=== PATIENT | male | born 1945 | race Caucasian/White ===

== ENCOUNTER → 2019-11-07 11:47 | Outpatient (CLI) | payer MEDICARE, SELFPAY ==
--- NOTE | 2019-11-07 11:56 | XR_ITS ---
PROCEDURE: XR CHEST 2V CLINICAL HISTORY: chest pain Cardiac stent was placed 2 months ago. COMPARISON: No exams were available for comparison FINDINGS: No acute bony abnormalities. There is bony demineralization. Increased thoracic kyphosis. There is a borderline cardiomegaly. Atherosclerotic calcification of the aortic arch. Very mildly prominent peripheral pulmonary vascular markings. There is no demonstrated consolidation, pleural effusion or pneumothorax. IMPRESSION: 1. No acute findings. Dictated by: Dre Phelan 11/07/2019 17:51 Electronically signed by Dre Phelan in [place] 11/07/2019 17:51
== END ==
PROVIDERS: PCP Family Medicine; Visit Provider Family Medicine
DX: R07.9 Chest pain, unspecified (principal)
CPT/HCPCS: 71046

== ENCOUNTER 2019-11-08 12:00 | Day surgery (SDC) | payer MEDICARE, SELFPAY ==
[2019-11-08] VITALS (11 sets, daily range): BP systolic 125–185; BP diastolic 57–73; PULSE 54–61; RESP 16–20; TEMP 36.6; O2SAT 93–98; BMI 29.1
--- NOTE | 2019-11-08 | IR_ITS ---
APPROVED REPORT Patient Location: Outpatient PROCEDURES Left heart catheterization Left ventriculogram Selective coronary angiogram Drug-eluting stent deployment to the ostial dominant right coronary artery INDICATION Coronary artery disease, Class IV angina pectoris, In-stent restenosis involving the ostial dominant right coronary artery Informed consent was obtained prior to the procedure. COMPLICATIONS none Estimated Blood Loss: less than 10 mls TECHNIQUE One percent lidocaine used to anesthetize the right anterior aspect of the wrist. The right radial artery was accessed via the Seldinger technique. A 6 Maori sheath was placed in the right radial artery. 2.5 mg of verapamil, 800 mcg of nitroglycerin, 1mg Lidocaine and 5000 U Heparin were given through the arterial sheath. The trap catheter was also used to perform left heart catheterization, left ventriculogram and selective coronary angiogram. At the end of the diagnostic angiogram therapeutic heparin was administered giving a therapeutic ACT. A 3 DRC guide catheter was placed in the right coronary cusp and a Choice PT extra-support wire was used to traverse the stenosis in the right coronary artery. A 3.5 x 12 mm resolute priya stent was deployed at 24 areli reducing the stenosis. This was postdilated with a 4 mm x 8 mm noncompliant balloon followed by a 4.5 x 8 mm noncompliant balloon both balloons taken to 24 areli to post dilate. BRIAN-3 flow was present before and after the procedure. At the end of the procedure the apparatus was removed the sheath was removed good hemostasis was achieved using TR banding patient was transferred to the postop holding area stable condition ANGIOGRAPHIC RESULTS The left main artery Has a distal 30% stenosis The left anterior descending artery Has a stent in the proximal through mid segment which is widely patent free of in-stent restenosis with excellent proximal distal transitioning. The circumflex artery Is nondominant and has a stent in the proximal segment which is widely patent with mild in-stent restenosis. Distal to the stent there is a 40% transitioning into the solitary moderate-sized obtuse marginal artery The right coronary artery Is a large dominant vessel and has an ostial greater than 90% concentric in-stent restenotic lesion followed by a proximal 30% in-stent restenosis lesion with widely patent stents throughout the mid segment. Distally the vessel has mild atheromatous plaque less than 20% The MELTON ventriculogram reveals Normal 65% The left ventricular end-diastolic pressure 10 mmHg IMPRESSION Mild to moderate distal left main disease as described above Widely patent stents in the proximal and mid LAD Widely patent stents in the proximal circumflex artery with moderate stenosis into a moderate-sized first obtuse marginal artery Severe to critical in-stent restenosis of the ostial dominant right coronary artery Successful stenting of a critically diseased ostial dominant right coronary artery critical disease reduced to less than 10% with one drug-eluting stent Normal ejection fraction Normal left ventricular end-diastolic pressure PLAN 1. Dual antiplatelet therapy 2. LDL less than 55 3. Cardiac rehabilitation 4. Avoidance of tobacco products 5. Risk factor modification Electronically signed by : Cornelio Gardner, 11/08/2019 13:12:42
[2019-11-08 12:19] LABS: Basophils # 0.1 K/mm3 (0-0.2); Eosinophils # 0.3 K/mm3 (0.0-0.4); Eosinophils % 4.1 % (0.1-12.0); Hematocrit 33.7 % (42.0-52.0); Hemoglobin 11.7 g/dL (14.1-18.0); Lymphocytes # 1.3 K/mm3 (0.7-4.5); Mean Corpuscular HGB Conc 34.8 g/dL (31.8-35.4); Mean Corpuscular Hemoglobin 30.2 pg (27.0-31.2); Mean Corpuscular Volume 86.8 fl (80-94); Mean Platelet Volume 8.7 fl (7.4-10.4); Monocytes # 0.4 K/mm3 (0.1-1.0); Monocytes % 6.8 % (1.7-9.3); Neutrophils # 4.1 K/mm3 (1.8-7.8); Neutrophils % 67.2 % (37.0-80.0); Platelet Count 184 K/mm3 (142-424); Red Blood Count 3.88 M/mm3 (4.60-6.20); Red Cell Distribution Width 14.8 % (11.5-17.5); White Blood Count 6.1 K/mm3 (4.8-10.8)
[2019-11-08 12:23] LABS: Chloride 102 mmol/L (98-107); Potassium 4.3 mmoL/L (3.5-5.1); Sodium 139 mmol/L (136-145)
[2019-11-08 12:26] LABS: Anion Gap 14.3 mEq/L (5-15); Blood Urea Nitrogen 14 mg/dl (9-20); Calcium 9.5 mg/dl (8.4-10.2); Carbon Dioxide 27 mmol/L (22.0-30.0); Creatinine Clearance Estimated 88 mL/min (50-200); Estimated Glomerular Filt Rate 82 ml/min (>60); GFR (African American) 100 ML/MIN (>60); Glucose 157 mg/dl (74-100)
--- NOTE | 2019-11-08 13:35 | HMH.PHACLD ---
Austen Quiroz has received discharge medication counseling on the following medications: CONTINUE MEDICATIONS: OLMESARTAN-AMLODIPINE, ATORVASTATIN, ASPIRIN, METOPROLOL, CLOPIDOGREL
[2019-11-08 13:36] LABS: CATHL Activated Clotting Time 365 SEC (74-125)
== END 2019-11-08 16:17 | disposition home or self-care (01) ==
LOC: CATHLAB 12:01
PROVIDERS: PCP Family Medicine; Visit Provider Internal Medicine
DX: I25.110 Atherosclerotic heart disease of native coronary artery with unstable angina pectoris (principal); I10 Essential (primary) hypertension; T82.855A Stenosis of coronary artery stent, initial encounter; E78.5 Hyperlipidemia, unspecified; Z95.5 Presence of coronary angioplasty implant and graft; Z79.84 Long term (current) use of oral hypoglycemic drugs; Z79.82 Long term (current) use of aspirin; Z79.02 Long term (current) use of antithrombotics/antiplatelets
CPT/HCPCS: 80048; 85025; 85347; 92928; 93458; 99152; C1725; C1769; C1876; C9600; J1644; Q9967

== ENCOUNTER → 2019-11-20 14:11 | Outpatient (CLI) | payer MEDICARE, SELFPAY ==
--- NOTE | 2019-11-20 14:18 | CA_ITS ---
APPROVED REPORT [employer] Investigator: Bettye Rockwell RVT Laterality: Bilateral Study Quality: Adequate Indications: Bruit Risk Factors Hypertension: Hyperlipidemia Diabetes Smoking Doppler Spectral Velocity Analysis ECA (R) 158.90/19.10 cm/s ECA (L) 209.20/7.40 cm/s dICA (R) 88.90/24.50 cm/s dICA (L) 134.30/26.70 cm/s Vanessa (R) 118.90/20.00 cm/s Vanessa (L) 132.60/24.10 cm/s pICA (R) 115.60/19.10 cm/s pICA (L) 159.30/27.60 cm/s dCCA (R) 91.60/11.00 cm/s dCCA (L) 120.30/14.60 cm/s pCCA (R) 102.00/12.10 cm/s pCCA (L) 104.20/13.80 cm/s Vert (R) 53.60/14.60 cm/s Vert (L) 52.90/18.40 cm/s ICA/CCA 1.30 ICA/CCA 1.32 Findings Study suggests 20-49% stenosis of the right internal cartoid artery. Study suggests 50-69% stenosis of the left internal cartoid artery. Antegrade flow seen bilateral vertebral arteries. Conclusion Study suggests 20-49% stenosis of the right internal cartoid artery. Study suggests 50-69% stenosis of the left internal cartoid artery. Antegrade flow seen bilateral vertebral arteries. Electronically signed by : Wale Curry MD 11/20/2019 16:14:35
--- NOTE | 2019-11-20 14:18 | CA_ITS ---
APPROVED REPORT EXAM: Comprehensive 2D, Doppler, and color-flow Echocardiogram Language Pathologist: Bettye Rockwell RVT Ht: 6 ft 0 in Wt: 215lbs BSA: 2.20 BP: 115/55 mmHg Indications: CAD,HTN,HLD,DM,STENT 2D Dimensions LVOT 1.80 cm (M/F) 1.5-2.5 M-Mode Dimensions RVDd 3.44 cm (0.9-2.6) LVDd 5.10 cm (3.5-5.7) LVDs 2.97 cm (3.5-5.7) IVSd 1.15 cm (0.6-1.1) PWd 1.27 cm (0.6-1.1) EF (Teich) 72.40% FS 41.80% EDV (Teich) 123.80 mL ESV (Teich) 34.20 mL LV Diastology E/A Ratio 0.56 Aortic Valve LVOT Max 186.00 (70-110 cm/s) LVOT VTI 39.74 cm Mitral Valve MV A Velocity 111.00 (40-130 cm/s) Left Ventricle Left atrium is mildly enlarged, left ventricle is normal size, mild concentric left ventricular hypertrophy, visually estimated ejection fraction 55% with no regional wall motion abnormality, grade 1 diastolic dysfunction seen with tissue Doppler evidence of raise left atrial pressure. Right Ventricle Right atrium and right ventricle mildly enlarged with normal contractility. Aortic Valve Aortic valve is thickened and calcified, mean gradient across valve is 12 mmHg, represents mild aortic stenosis, there is no aortic insufficiency. Mitral Valve Mitral valve leaflets are minimally thickened, there is mitral annular calcification present, there is no mitral stenosis, there is mild mitral regurgitation. Tricuspid Valve Tricuspid valve is grossly normal, there is mild tricuspid regurgitation. Pulmonic Valve Pulmonic valve is poorly visualized. Great Vessels Aortic root is normal size. Pericardium No significant pericardial effusion noted. Conclusion 1. Biatrial enlargement, normal left ventricular size, mild concentric left ventricular hypertrophy, visually estimated ejection fraction 55% with no regional wall motion abnormality, grade 1 diastolic dysfunction seen with tissue Doppler evidence of raise left atrial pressure. 2. Mildly enlarged right ventricle with normal contractility. 3. Thickened and calcified aortic valve with mild aortic stenosis, there is no aortic insufficiency. 4. Mild mitral and tricuspid regurgitation. 5. No significant pericardial effusion noted. Electronically signed by : Quique Barlow, 11/21/2019 15:17:26
== END ==
PROVIDERS: PCP Family Medicine; Visit Provider Internal Medicine Cardiovascular Disease
DX: I10 Essential (primary) hypertension (principal); I25.10 Atherosclerotic heart disease of native coronary artery without angina pectoris; R09.89 Other specified symptoms and signs involving the circulatory and respiratory systems; Z95.5 Presence of coronary angioplasty implant and graft; I65.23 Occlusion and stenosis of bilateral carotid arteries
CPT/HCPCS: 93306; 93880

== ENCOUNTER → 2020-05-15 17:56 | Outpatient (CLI) | payer MEDICARE, SELFPAY ==
[2020-05-15 18:24] LABS: Basophils % 0.6 % (0.1-2.0); Eosinophils # 0.2 K/mm3 (0.0-0.4); Eosinophils % 3.4 % (0.1-12.0); Hematocrit 37.1 % (42.0-52.0); Hemoglobin 12.4 g/dL (14.1-18.0); Lymphocytes # 1.3 K/mm3 (0.7-4.5); Lymphocytes % 18.3 % (10-50); Mean Corpuscular HGB Conc 33.5 g/dL (31.8-35.4); Mean Corpuscular Hemoglobin 29.6 pg (27.0-31.2); Mean Corpuscular Volume 88.3 fl (80-94); Mean Platelet Volume 8.7 fl (7.4-10.4); Monocytes # 0.5 K/mm3 (0.1-1.0); Monocytes % 6.9 % (1.7-9.3); Neutrophils % 70.8 % (37.0-80.0); Platelet Count 210 K/mm3 (142-424); Red Cell Distribution Width 15.1 % (11.5-17.5); White Blood Count 7.1 K/mm3 (4.8-10.8)
[2020-05-15 18:36] LABS: Alanine Aminotransferase 19 U/L (12-78); Albumin Level 4.5 g/dl (3.5-5.0); Albumin/Globulin Ratio 1.5 (1.1-1.8); Alkaline Phosphatase 78 U/L (38-126); Aspartate Amino Transferase 30 U/L (17-59); Bilirubin,Total 0.5 mg/dl (0.2-1.3); Blood Urea Nitrogen 18 mg/dl (9-20); Calcium 9.9 mg/dl (8.4-10.2); Carbon Dioxide 28 mmol/L (22.0-30.0); Chloride 101 mmol/L (98-107); Chol/HDL Ratio 3.4 (1-3.5); Cholesterol 110 mg/dl (140-200); Estimated Glomerular Filt Rate 73 ml/min (>60); GFR (African American) 88 ML/MIN (>60); Glucose 314 mg/dl (74-100); HDL Cholesterol 32 mg/dl (40-60); Sodium 137 mmol/L (136-145); Total Protein,Serum 7.5 g/dl (6.3-8.2); Triglycerides 234 mg/dl (30-150); VLDL Cholesterol 47 mg/dL (0-40)
[2020-05-15 18:47] LABS: Direct LDL Cholesterol 48.44 mg/dL (100-129)
[2020-05-15 19:07] LABS: Prostate Specific Ag Screen 2.6 ng/ml (0.0-4.0)
[2020-05-15 19:26] LABS: Hemoglobin A1C 8.1 % (4.0-6.0)
== END ==
PROVIDERS: Visit Provider Family Medicine
DX: E11.9 Type 2 diabetes mellitus without complications (principal); E78.5 Hyperlipidemia, unspecified; I25.10 Atherosclerotic heart disease of native coronary artery without angina pectoris; M79.89 Other specified soft tissue disorders; R29.898 Other symptoms and signs involving the musculoskeletal system; Z12.5 Encounter for screening for malignant neoplasm of prostate; I65.29 Occlusion and stenosis of unspecified carotid artery; Z79.84 Long term (current) use of oral hypoglycemic drugs
CPT/HCPCS: 80053; 80061; 83036; 85025; G0103

== ENCOUNTER → 2020-09-01 13:02 | Outpatient (CLI) | payer MEDICARE, SELFPAY ==
[2020-09-01 14:33] LABS: Basophils # 0.1 K/mm3 (0-0.2); Basophils % 1.2 % (0.1-2.0); Eosinophils # 0.3 K/mm3 (0.0-0.4); Eosinophils % 4.5 % (0.1-12.0); Lymphocytes # 1.5 K/mm3 (0.7-4.5); Lymphocytes % 24.3 % (10-50); Mean Corpuscular HGB Conc 33.5 g/dL (31.8-35.4); Mean Corpuscular Hemoglobin 29.3 pg (27.0-31.2); Mean Corpuscular Volume 87.7 fl (80-94); Mean Platelet Volume 8.8 fl (7.4-10.4); Monocytes # 0.4 K/mm3 (0.1-1.0); Monocytes % 6.5 % (1.7-9.3); Neutrophils # 3.8 K/mm3 (1.8-7.8); Neutrophils % 63.5 % (37.0-80.0); Platelet Count 196 K/mm3 (142-424); Red Blood Count 3.76 M/mm3 (4.60-6.20); Red Cell Distribution Width 14.9 % (11.5-17.5)
[2020-09-01 14:50] LABS: Chloride 102 mmol/L (98-107); Sodium 137 mmol/L (136-145)
[2020-09-01 14:51] LABS: Potassium 4.7 mmoL/L (3.5-5.1)
[2020-09-01 14:53] LABS: Alanine Aminotransferase 17 U/L (12-78); Albumin Level 4.1 g/dl (3.5-5.0); Albumin/Globulin Ratio 1.6 (1.1-1.8); Alkaline Phosphatase 68 U/L (38-126); Anion Gap 14.7 mEq/L (5-15); Aspartate Amino Transferase 25 U/L (17-59); Bilirubin,Total 0.9 mg/dl (0.2-1.3); Blood Urea Nitrogen 23 mg/dl (9-20); Carbon Dioxide 25 mmol/L (22.0-30.0); Estimated Glomerular Filt Rate 65 ml/min (>60); GFR (African American) 79 ML/MIN (>60); Globulin 2.5 g/dL (1.3-3.2); Total Protein,Serum 6.6 g/dl (6.3-8.2)
[2020-09-01 14:54] LABS: Glucose 270 mg/dl (74-100)
[2020-09-01 15:03] LABS: NT Pro Brain Natriuretic Pep. 328 pg/mL (0-450)
[2020-09-01 15:24] LABS: Thyroid Stimulating Hormone 1.23 uIU/mL (0.465-4.68)
== END ==
PROVIDERS: PCP Family Medicine; Visit Provider Family Medicine
DX: R42 Dizziness and giddiness (principal); R55 Syncope and collapse; I35.0 Nonrheumatic aortic (valve) stenosis; R09.89 Other specified symptoms and signs involving the circulatory and respiratory systems
CPT/HCPCS: 36415; 80053; 83880; 84443; 85025; 93225; 93226

== ENCOUNTER 2020-09-03 13:56 | Observation (INO) | payer MEDICARE, SELFPAY ==
[2020-09-03] VITALS (22 sets, daily range): BP systolic 123–199; BP diastolic 55–95; PULSE 48–70; RESP 12–20; TEMP 36.4–36.9; O2SAT 92–99; BMI 28.3; BMI 28.0
--- NOTE | 2020-09-03 07:12 | IR_ITS ---
APPROVED REPORT Patient Location: Outpatient [facility] Repairer: GISELE Whelan RT (R) PROCEDURES Left heart catheterization Left ventriculogram Selective coronary angiogram INDICATION Known coronary disease, Syncope, Left bundle branch block Informed consent was obtained prior to the procedure. COMPLICATIONS None Estimated Blood Loss: Less than 10 mls TECHNIQUE One percent lidocaine used to anesthetize the right anterior aspect of the wrist. The right radial artery was accessed via the Seldinger technique. A 6 Portuguese sheath was placed in the right radial artery. 2.5 mg of verapamil, 800 mcg of nitroglycerin, 1mg Lidocaine and 5000 U Heparin were given through the arterial sheath. The trap catheter and a 6 Portuguese JL 3 guide catheter were also used to perform left heart catheterization, left ventriculogram and selective coronary angiogram. At the end of the procedure the sheath was removed good hemostasis was achieved using Traclet band, patient was transferred to the postop holding area in stable condition. ANGIOGRAPHIC RESULTS The left main artery Has a distal concentric 80 to 90% stenosis The left anterior descending artery Has a stent in the proximal segment which is widely patent free of in-stent restenosis with excellent distal transitioning. A large first diagonal artery has a stent in the ostial proximal segment which is also widely patent however distal to the stent there is an 80 and complex 90% stenosis The circumflex artery Is a nondominant vessel and has a mid vessel 80% eccentric stenosis supplying a large first obtuse marginal artery The right coronary artery Is a large dominant vessel and has an ostial concentric 80% stenosis followed by widely patent stents throughout the proximal and mid segment. Distally the posterior descending artery has mild atheromatous plaque in the posterior lateral branch has a mid vessel to distal concentric 90% stenosis The MELTON ventriculogram reveals Normal 60% The left ventricular end-diastolic pressure 10 mmHg IMPRESSION Severe three-vessel coronary disease as described above Normal ejection fraction Normal left ventricular end-diastolic pressure PLAN 1. In light of patient's syncope in the presence of severe to critical coronary artery disease it is recommended he be admitted to [facility] this evening and placed on heparin drip while Plavix is discontinued 2. I spoken with the surgeon at [facility] who was agreed to accept patient in transfer this evening with plans to keep the patient over the weekend and proceed with bypass surgery next week Electronically signed by : Cornelio Gardner, 09/03/2020 12:44:27
[2020-09-03 14:42] LABS: Prothrombin Time 12.1 seconds (10.1-12.5)
[2020-09-03 14:44] LABS: Activated Partial Thrombo Time 37.9 seconds (22.8-30.6); INR 1.03 (0.9-1.1)
--- NOTE | 2020-09-03 15:15 | HMH.HP ---
*Admission Date: 09/03/20 *Chief complaint: syncope and coronary disease *History of present illness: Patient is a 75-year-old white male, patient of my practice and well-known, saw me in the office yesterday with complaints of 2 episodes of syncope. Patient has a history of coronary artery disease, status post multiple stent deployments. He manifested classic ischemic features prior to these previous deployments. On this occasion he did not have much in the way of substernal chest pain, lost an abrupt onset of syncope. Patient was seen in the cardiology outpatient office yesterday, and taken to cath today. Findings are as follows ANGIOGRAPHIC RESULTS The left main artery Has a distal concentric 80 to 90% stenosis The left anterior descending artery Has a stent in the proximal segment which is widely patent free of in-stent restenosis with excellent distal transitioning. A large first diagonal artery has a stent in the ostial proximal segment which is also widely patent however distal to the stent there is an 80 and complex 90% stenosis The circumflex artery Is a nondominant vessel and has a mid vessel 80% eccentric stenosis supplying a large first obtuse marginal artery The right coronary artery Is a large dominant vessel and has an ostial concentric 80% stenosis followed by widely patent stents throughout the proximal and mid segment. Distally the posterior descending artery has mild atheromatous plaque in the posterior lateral branch has a mid vessel to distal concentric 90% stenosis The MELTON ventriculogram reveals Normal 60% The left ventricular end-diastolic pressure 10 mmHg IMPRESSION Severe three-vessel coronary disease as described above Normal ejection fraction Normal left ventricular end-diastolic pressure PLAN 1. In light of patient's syncope in the presence of severe to critical coronary artery disease it is recommended he be admitted to [facility] this evening and placed on heparin drip while Plavix is discontinued 2. I spoken with the surgeon at [facility] who was agreed to accept patient in transfer this evening with plans to keep the patient over the weekend and proceed with bypass surgery next week Discussed the case with Dr. Gardner, we will bring him on our service until he is transferred. [facility] History Medical History: Reports:: Cancer, Congestive Heart Failure, Coronary Artery Disease, Diabetes Mellitus Type 2, Hyperlipidemia, Hypertension Denies:: Diabetes Mellitus Type 1, MRSA *Have you ever received a pneumonia vaccine?: Yes *Have you received a flu vaccine this season?: Yes Other Surgeries: Yes: Cardiac Catheterization, Cardiac Surgery, Coronary Stent - *Social History Last grade of school completed: Some college Smoking Status: Former smoker Tobacco Type: cigarettes Alcohol Intake: current Alcohol Intake Frequency:: a few times a week Substance Use Type: denies use *Occupational Status:: employed Housing: house Household Members: none *Travel in the last 8 weeks: None Family Hx:: No significant family history Review of Systems - Constitutional Reports lack of energy, Reports weakness - Eyes Denies blurry vision - ENT Denies abnormal hearing - *Cardiovascular Reports chest pain with activity, Reports fainting - *Respiratory Denies chest congestion - *Gastrointestinal Denies abdominal pain - *Genitourinary Reports difficulty urinating, Reports frequent nighttime urination - *Musculoskeletal Reports joint pain, Denies abnormal walking - Integumentary/Breasts Denies yellowing of the skin, Denies lesions - *Neurologic Reports fainting, Reports weakness, Denies abnormal hearing, Denies confusion, Denies seizure-like activity - Psychiatric Denies behavioral changes - Endocrine Denies flushing - Hematologic/Lymphatic Denies easy bleeding, Denies easy bruising - Allergic/Immunologic Denies hives Meds Home Medications M
--- NOTE | 2020-09-03 16:20 | P.CONPHA_ITS ---
[facility] Pharmacy Heparin Dosing - Demographic Data Admission date:: 09/03/20 Date: 09/03/20 Time: 16:20 Allergies/Adverse Reactions: Allergies Allergy/AdvReac Type Severity Reaction Status Date / Time No Known Allergies Allergy Verified 09/01/20 14:04 Height: 1.83 m Weight: 93.67 kg - Indication Medication therapy:: Heparin Patient Problems: Current Active Problems Syncope and collapse (Acute) HLD (hyperlipidemia) (Chronic) Diabetes (Chronic) Stented coronary artery (Chronic) Essential hypertension (Chronic) CAD (coronary artery disease) (Chronic) CVA?: No Bleeding problem?: No Kidney disease?: No VA?: No Desired PTT range:: 50-70 seconds - Monitoring Dose Monitor 1 Date: 09/03/20 Time: 14:05 PTT Result:: APTT-37.9 Infusion Rate:: HEPARIN 5000 UNIT BOLUS AND HEPARIN DRIP 1200 UNITS/HR PER MD. - Core Measures Is INR > or = 2 at discharge?: No Most Recent Labs:: Laboratory Results - last 24 hr 09/03/20 14:05: PT 12.1, INR 1.03, APTT 37.9 H Were Heparin and Warfarin started on the same day?: No If not, why?: D/C TO [facility]
--- NOTE | 2020-09-03 17:24 | PC.NURSE ---
Have called report to Erick at , radial band of at this time. FS [id number] when randomly checked, have paged traffic control signaler -Dr. Davis to notify.
[2020-09-03 17:29] LABS: POC Glucose,Bedside 376 (70-110)
--- NOTE | 2020-09-03 18:15 | PC.NURSE ---
Dr. Davis ordered 8 units of humalog x 1 sc for fs of 376. This RN also notified Dr. Davis d/c summary and order were needed for pt to go to where he has a bed available. Dr. Davis stated to have Dr. herrera the PCP to do d/c summary and order, have called x [address] Herrera and been unsuccessful [id number].
--- NOTE | 2020-09-03 20:07 | HMH.DCSUM ---
General - General Admission date:: 09/03/20 Discharge date: 09/03/20 HPI HPI: Patient is a 75-year-old white male, patient of my practice and well-known, saw me in the office yesterday with complaints of 2 episodes of syncope. Patient has a history of coronary artery disease, status post multiple stent deployments. He manifested classic ischemic features prior to these previous deployments. On this occasion he did not have much in the way of substernal chest pain, lost an abrupt onset of syncope. Patient was seen in the cardiology outpatient office yesterday, and taken to cath today. Findings are as follows ANGIOGRAPHIC RESULTS The left main artery Has a distal concentric 80 to 90% stenosis The left anterior descending artery Has a stent in the proximal segment which is widely patent free of in-stent restenosis with excellent distal transitioning. A large first diagonal artery has a stent in the ostial proximal segment which is also widely patent however distal to the stent there is an 80 and complex 90% stenosis The circumflex artery Is a nondominant vessel and has a mid vessel 80% eccentric stenosis supplying a large first obtuse marginal artery The right coronary artery Is a large dominant vessel and has an ostial concentric 80% stenosis followed by widely patent stents throughout the proximal and mid segment. Distally the posterior descending artery has mild atheromatous plaque in the posterior lateral branch has a mid vessel to distal concentric 90% stenosis The MELTON ventriculogram reveals Normal 60% The left ventricular end-diastolic pressure 10 mmHg IMPRESSION Severe three-vessel coronary disease as described above Normal ejection fraction Normal left ventricular end-diastolic pressure PLAN 1. In light of patient's syncope in the presence of severe to critical coronary artery disease it is recommended he be admitted to [facility] this evening and placed on heparin drip while Plavix is discontinued 2. I spoken with the surgeon at [facility] who was agreed to accept patient in transfer this evening with plans to keep the patient over the weekend and proceed with bypass surgery next week Discussed the case with Dr. Gardner, we will bring him on our service until he is transferred. 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 A large first diagonal artery has a stent in the ostial proximal segment which is also widely patent however distal to the stent there is an 80 and complex 90% stenosis The circumflex artery Is a nondominant vessel and has a mid vessel 80% eccentric stenosis supplying a large first obtuse marginal artery The right coronary artery Is a large dominant vessel and has an ostial concentric 80% stenosis followed by widely patent stents throughout the proximal and mid segment. Distally the posterior descending artery has mild atheromatous plaque in the posterior lateral branch has a mid vessel to distal concentric 90% stenosis The MELTON ventriculogram reveals Normal 60% The left ventricular end-diastolic pressure 10 mmHg IMPRESSION Severe three-vessel coronary disease as described above Normal ejection fraction Normal left ventricular end-diastolic pressure PLAN 1. In light of patient's syncope in the presence of severe to critical coronary artery disease it is recommended he be admitted to [facility] this evening and placed on heparin drip while Plavix is discontinued 2. I spoken with the surgeon at [facility] who was agreed to accept patient in transfer this evening with plans to keep the patient over the weekend and proceed with bypass
--- NOTE | 2020-09-03 20:32 | PC.NURSE ---
Attempted again to reach Dr. Parham for d/c order and summary- unsuccessful. Report given to A JacintaRN (charge nurse) made aware and was going to speak with Dr. Rivera. Did apply dsg to R wrist after radial band removed in which there was a small amt of blood. No active bleeding. Continues on heparin drip. Educated pt on site. Pt also refused to have aptt at 1800. This RN did educate pt on need for lab to mx and adjust dose in accordance and he stated he was leaving soon anyway and they would be doing all that at the other hospital. CB in reach. VSS
--- NOTE | 2020-09-03 21:10 | PC.NURSE ---
pt transferred at this time to via [facility]. iv patent and infusing heparin drip per order. radial cath site dressing in place with small amount of blood noted to dressing. pt alert and oriented.
--- NOTE | 2020-09-03 21:10 | PC.NURSE ---
PT TRANSFERRED VIA STRETCHER W/ EMS TO DIFFERENT FACILITY AT 0.
== END 2020-09-03 21:10 | disposition short-term general hospital (02) ==
LOC: 2ND 13:58
PROVIDERS: Internal Medicine; Admitting Provider Family Medicine; PCP Family Medicine; Visit Provider Family Medicine
DX: E78.2 Mixed hyperlipidemia (principal); I25.110 Atherosclerotic heart disease of native coronary artery with unstable angina pectoris; I35.0 Nonrheumatic aortic (valve) stenosis; I65.23 Occlusion and stenosis of bilateral carotid arteries; R09.89 Other specified symptoms and signs involving the circulatory and respiratory systems; R55 Syncope and collapse; Z95.5 Presence of coronary angioplasty implant and graft; I11.0 Hypertensive heart disease with heart failure; I50.9 Heart failure, unspecified
CPT/HCPCS: 82962; 85610; 85730; 93458; 99152; C1725; C1769; G0378; J1642; J1644; Q9967

== ENCOUNTER → 2020-12-08 11:31 | Outpatient (CLI) | payer MEDICARE, SELFPAY ==
--- NOTE | 2020-12-08 11:41 | XR_ITS ---
PROCEDURE: XR CHEST 2V CLINICAL HISTORY: PPM Pacemaker placement COMPARISON: CR XR CHEST 2V from 11/07/2019 FINDINGS: There has been interval insertion a bipolar pacemaker left subclavian approach of the right atrial and right ventricular lead. There has been a prior CABG. Normal heart size. No evidence of CHF. There is minimal blunting of the left CP angle. Calcified granuloma is present within the left lower lobe. Coronary artery calcifications and/or stents noted no lobar consolidation or collapse. No acute bony anomalies . IMPRESSION: Cardiac pacemaker device present with the leads in good position. Trace left effusion Dictated by: Wale Curry MD 12/08/2020 12:10 Wale Curry MD in [facility] 12/08/2020 12:10
== END ==
PROVIDERS: PCP Family Medicine; Referring Provider Internal Medicine; Visit Provider Internal Medicine
DX: Z95.0 Presence of cardiac pacemaker (principal)
CPT/HCPCS: 71046

== ENCOUNTER → 2021-01-28 12:52 | Outpatient (CLI) | payer MEDICARE, SELFPAY ==
--- NOTE | 2021-01-28 12:53 | CA_ITS ---
APPROVED REPORT EXAM: Comprehensive 2D, Doppler, and color-flow Echocardiogram Drive Worker: Lorene Thomas RT(R) Ht: 6 ft 0 in Wt: 206lbs BSA: 2.16 BP: 120/69 mmHg Indications: HTN, DM, hyperlipidemia, CAD, Stents, mild , pacemaker 2D Dimensions LVOT 1.97 cm (M/F) 1.5-2.5 LA Volume 59.20 mL LA Volume Index 27.53 mL/m2 (M/F) 16-34 M-Mode Dimensions RVDd 1.72 cm (0.9-2.6) LA Diam 4.56 cm (1.9-4.0) LVDd 6.06 cm (3.5-5.7) Ao Diam 1.98 cm (2.0-3.7) LVDs 4.49 cm (3.5-5.7) IVSd 1.00 cm (0.6-1.1) PWd 0.92 cm (0.6-1.1) EF (Teich) 50.00% FS 25.90% EDV (Teich) 184.10 mL ESV (Teich) 92.00 mL LV Diastology E Decel Time 200.00 (160-240 msec) E/A Ratio 1.1 MED E' 7.60 (< 7 cm/sec) E'/MED E' Ratio 16.67 (>14) LAT E' 9.40 (<10 cm/sec) E/LAT E' Ratio 13.48 (>14) Aortic Valve LVOT Max 111.00 (70-110 cm/s) LVOT VTI 26.76 cm AoV Peak Adam. 234.00 (50-130 cm/s) AO Peak GR. 21.90 mmHg AO Mean GR. 11.00 (<5 mmHg) AO VTI 51.49 (18-25 cm) NATHAN (VTI) 1.58 (2.5-4.5 cm2) Mitral Valve MV E Max Adam. 127.00 (40-130 cm/s) MV A Velocity 117.00 (40-130 cm/s) E/A Ratio 1.08 MV Decel. Time 200.00 (160-240 ms) MV PHT 59.00 ms Tricuspid Valve TR P. Velocity 308.00 cm/s RAP Estimate 10.00 mmHg RVSP 48.00 mmHg Left Ventricle Left atrium is mildly enlarged, left ventricle is normal size, mild concentric left ventricular hypertrophy, visually estimated ejection fraction 55% with no regional wall motion abnormality, grade 2 diastolic dysfunction seen without tissue Doppler evidence of raise left atrial pressure. Right Ventricle Right atrium and right ventricle are mildly enlarged with normal contractility. Aortic Valve Aortic valve is thickened and calcified with valve area of 1.6 cm??? represents a mild aortic stenosis. There is no significant aortic insufficiency present. Mitral Valve Mitral valve has mitral annular calcification which extends in both anterior posterior mitral leaflet. There is mild mitral regurgitation, there is no mitral stenosis. Tricuspid Valve Tricuspid valve is grossly normal, there is mild tricuspid regurgitation, calculated right ventricular systolic pressure is 48 mmHg. Pulmonic Valve Pulmonic valve is poorly visualized. Great Vessels Aortic root is normal size. Inferior vena cava is normal size with normal inspiratory collapse Pericardium No significant pericardial effusion noted. Conclusion 1. Biatrial enlargement, normal left ventricular size, mild concentric left ventricular hypertrophy, visually estimated ejection fraction 55% with no regional wall motion abnormality, grade 2 diastolic dysfunction seen without tissue Doppler evidence of raise left atrial pressure. 2. Thickened and calcified aortic valve with mild aortic stenosis, valve area is 1.6 cm???, there is no significant aortic insufficiency seen. 3. Mild mitral and tricuspid regurgitation, calculated right ventricular systolic pressure is 48 mmHg. 4. No significant pericardial effusion noted 5. Inferior vena cava is normal size with normal inspiratory collapse. Electronically signed by : Quique Barlow MD 01/29/2021 13:37:59
--- NOTE | 2021-01-28 12:53 | CA_ITS ---
APPROVED REPORT Director Of Customer Acquisition: LANDEN Laterality: Bilateral Study Quality: Good Indications: CARMENCITA, CAD, Risk Factors Hypertension: Hyperlipidemia Diabetes CAD, Doppler Spectral Velocity Analysis ECA (R) 131.50/2.10 cm/s ECA (L) 155.10/7.50 cm/s dICA (R) 86.60/21.40 cm/s dICA (L) 131.00/36.00 cm/s Vanessa (R) 84.50/20.30 cm/s Vanessa (L) 134.00/47.00 cm/s pICA (R) 108.00/16.00 cm/s pICA (L) 183.00/34.00 cm/s dCCA (R) 96.20/12.80 cm/s dCCA (L) 107.00/13.00 cm/s pCCA (R) 105.90/12.80 cm/s pCCA (L) 107.00/18.00 cm/s Vert (R) 95.70/19.75 cm/s Vert (L) 72.70/13.90 cm/s ICA/CCA 1.13 ICA/CCA 1.71 Findings Duplex evaluation demonstrates antegrade flow of the bilateral Vertebral Arteries. Duplex evaluation demonstrates stenosis of the right proximal internal carotid artery in the range of 20-49% with PSV <140 cm/sec, EDV <100 cm/sec, and IC/CC Ratio <4.0. Duplex evaluation demonstrates stenosis of the left proximal internal carotid artery in the range of 50-69% with PSV =140 cm/sec, EDV <100 cm/sec, and IC/CC Ratio <4.0. Moderate heterogenous plaque throughout exam greater on Left versus Right. Conclusion Duplex evaluation demonstrates antegrade flow of the bilateral Vertebral Arteries. Duplex evaluation demonstrates stenosis of the right proximal internal carotid artery in the range of 20-49% with PSV <140 cm/sec, EDV <100 cm/sec, and IC/CC Ratio <4.0. Duplex evaluation demonstrates stenosis of the left proximal internal carotid artery in the range of 50-69% with PSV =140 cm/sec, EDV <100 cm/sec, and IC/CC Ratio <4.0. Moderate heterogenous plaque throughout exam greater on Left versus Right. Electronically signed by : Wale Curry MD 01/28/2021 15:04:18
== END ==
PROVIDERS: PCP Family Medicine; Visit Provider Nurse Practitioner Family
DX: E11.9 Type 2 diabetes mellitus without complications (principal); E78.5 Hyperlipidemia, unspecified; I10 Essential (primary) hypertension; I25.10 Atherosclerotic heart disease of native coronary artery without angina pectoris; I35.0 Nonrheumatic aortic (valve) stenosis; I48.91 Unspecified atrial fibrillation; R09.89 Other specified symptoms and signs involving the circulatory and respiratory systems; R55 Syncope and collapse; Z95.0 Presence of cardiac pacemaker; Z95.1 Presence of aortocoronary bypass graft; Z95.5 Presence of coronary angioplasty implant and graft; I65.23 Occlusion and stenosis of bilateral carotid arteries; Z79.84 Long term (current) use of oral hypoglycemic drugs
CPT/HCPCS: 93306; 93880

== ENCOUNTER 2021-08-26 11:23 | Outpatient (CLI) | payer MEDICARE, SELFPAY ==
[2021-08-26 11:35] VITALS: BMI 28.0
[2021-08-26 12:25] VITALS: BP 135/69; PULSE 89; RESP 18; TEMP 36.9; O2SAT 100
[2021-08-26 12:38] LABS: Chloride 100 mmol/L (98-107); Sodium 133 mmol/L (136-145)
[2021-08-26 12:39] LABS: Potassium 4.3 mmoL/L (3.5-5.1)
[2021-08-26 12:41] LABS: Alanine Aminotransferase 32 U/L (12-78); Albumin Level 3.9 g/dl (3.5-5.0); Albumin/Globulin Ratio 1.3 (1.1-1.8); Alkaline Phosphatase 77 U/L (38-126); Anion Gap 16.3 mEq/L (5-15); Aspartate Amino Transferase 45 U/L (17-59); Bilirubin,Total 1.2 mg/dl (0.2-1.3); Blood Urea Nitrogen 20 mg/dl (9-20); Carbon Dioxide 21 mmol/L (22.0-30.0); Creatinine Clearance Estimated 63 mL/min (50-200); Estimated Glomerular Filt Rate 54 ml/min (>60); GFR (African American) 65 ML/MIN (>60); Total Protein,Serum 6.9 g/dl (6.3-8.2)
[2021-08-26 12:42] LABS: Calcium 9.1 mg/dl (8.4-10.2); Glucose 223 mg/dl (74-100)
[2021-08-26 12:44] LABS: Basophils # 0.1 K/mm3 (0-0.2); Basophils % 1.7 % (0.1-2.0); Eosinophils % 0.5 % (0.1-12.0); Hematocrit 32.1 % (42.0-52.0); Hemoglobin 11.2 g/dL (14.1-18.0); Lymphocytes # 1.1 K/mm3 (0.7-4.5); Lymphocytes % 26.8 % (10-50); Mean Corpuscular HGB Conc 34.8 g/dL (31.8-35.4); Mean Corpuscular Hemoglobin 30.5 pg (27.0-31.2); Mean Corpuscular Volume 87.8 fl (80-94); Mean Platelet Volume 10.1 fl (7.4-10.4); Monocytes # 0.4 K/mm3 (0.1-1.0); Monocytes % 10.8 % (1.7-9.3); Neutrophils # 2.4 K/mm3 (1.8-7.8); Neutrophils % 60.3 % (37.0-80.0); Platelet Count 157 K/mm3 (142-424); Red Blood Count 3.65 M/mm3 (4.60-6.20); Red Cell Distribution Width 15.3 % (11.5-17.5); White Blood Count 4.1 K/mm3 (4.8-10.8)
[2021-08-26 13:16] LABS: Hemoglobin A1C 8.4 % (4.0-6.0)
[2021-08-26 13:25] VITALS: BP 144/70; PULSE 84; RESP 18; O2SAT 99
== END 2021-08-26 13:35 | disposition home or self-care (01) ==
LOC: INF 11:25
PROVIDERS: PCP Family Medicine; Visit Provider Family Medicine
DX: E86.0 Dehydration (principal); R55 Syncope and collapse; E08.00 Diabetes mellitus due to underlying condition with hyperosmolarity without nonketotic hyperglycemic-hyperosmolar coma (NKHHC)
CPT/HCPCS: 80053; 83036; 85025; 96360

== ENCOUNTER → 2021-09-27 06:01 | Outpatient (CLI) | payer MEDICARE, SELFPAY ==
--- NOTE | 2021-09-27 06:02 | CA_ITS ---
APPROVED REPORT Exam: Pharmacologic Technologist: Aliza Davidson, Ht: 6 ft 0 in Wt: 212 lbs BSA: 2.18 m2 HR: 60 bpm BP: 198/76 mmHg Medical History Medications: Metformin,,,,, Atorvastatin,,,,, XaRELTO,,,,, TAMSULOSIN,,,,, CloPIdogrel,,,,, Finasteride,,,,, Giles,,,,, Toprol XL,,,,, Multivitamin,,,,, Stress Test Details Test: LEXISCAN HR Resting HR: 60 bpm Max Heart Rate (APMHR): 143.454143 bpm Max HR Achieved: 71 bpm Target HR (85% APMHR): 121.591507 bpm % of APMHR: 49.65 Recovery HR: 60 bpm BP Resting BP: 198/76 mmHg Max BP: 198/76 mmHg Recovery BP: 167.0/75.0 mmHg ECG Clinical Exercise duration: 04:01 min Highest Stage Achieved: Exercise capacity: 1.0 METs Stress ECG Conclusion Symptoms: no chest pain. dizziness w/ lexiscan. Nausea w/ lexiscan. Arrhythmias/Ectopy: none ST-T Changes: <1.5mm ST segment depression. Conclusion: Test Summary RECOVERY 02:00 . . 60 . 169/ 68 . . REST 03:22 . . 60 . 198/ 76 . . Stage 1 01:00 . . 65 . . . . Stage 2 01:00 . . 70 . . . . Stage 3 01:00 . . 62 . 158/ 72 . . Stage 4 01:00 . . 60 . 168/ 69 . . Stage 4 01:01 . . 60 . 168/ 69 . Stop exercise at 04:01 RECOVERY 01:00 . . 62 . . . . RECOVERY 02:00 . . 60 . 169/ 68 . . RECOVERY 03:00 . . 60 . 169/ 68 . . RECOVERY 03:21 . . 60 . 167/ 65 . . Electronically signed by : Quique Barlow MD 09/27/2021 18:40:00
--- NOTE | 2021-09-27 06:02 | CA_ITS ---
APPROVED REPORT EXAM: Comprehensive 2D, Doppler, and color-flow Echocardiogram Flight Attendant/Inflight Supervisor: Deepa aMscorro CRT Ht: 6 ft 0 in Wt: 212lbs BSA: 2.18 BP: 150/62 mmHg Indications: Chest Pain, Aortic Valve Disease, Shortness of Breath, Atrial Fibrillation, Hyperlipidemia, Hypertension/HDD, pacer, CABG, mild 2D Dimensions LVOT 1.78 cm (M/F) 1.5-2.5 LA Volume 65.60 mL LA Volume Index 30.10 mL/m2 (M/F) 16-34 M-Mode Dimensions RVDd 3.31 cm (0.9-2.6) LA Diam 4.83 cm (1.9-4.0) LVDd 5.48 cm (3.5-5.7) Ao Diam 3.90 cm (2.0-3.7) LVDs 3.88 cm (3.5-5.7) IVSd 1.60 cm (0.6-1.1) PWd 1.10 cm (0.6-1.1) EF (Teich) 55.50% FS 29.20% EDV (Teich) 146.20 mL TAPSE 1.68 (<1.7) ESV (Teich) 65.10 mL LV Diastology E Decel Time 333.00 (160-240 msec) E/A Ratio 0.78 MED E' 2.90 (< 7 cm/sec) MED A' 6.00 cm/s E'/MED E' Ratio 33.48 (>14) LAT E' 5.20 (<10 cm/sec) LAT A' 7.80 cm/s E/LAT E' Ratio 18.67 (>14) Aortic Valve LVOT Max 137.00 (70-110 cm/s) LVOT VTI 29.89 cm AoV Peak Adam. 216.00 (50-130 cm/s) AO Peak GR. 18.70 mmHg AO Mean GR. 10.90 (<5 mmHg) AO VTI 55.58 (18-25 cm) NATHAN (VTI) 1.34 (2.5-4.5 cm2) Mitral Valve MV E Max Adam. 97.00 (40-130 cm/s) MV A Velocity 124.00 (40-130 cm/s) E/A Ratio 0.78 MV Decel. Time 333.00 (160-240 ms) MV PHT 98.00 ms Pulmonary Valve PV Peak Velocity 149.00 (50-150 cm/s) Tricuspid Valve TR P. Velocity 294.00 cm/s RAP Estimate 10.00 mmHg RVSP 44.60 mmHg Left Ventricle Left atrium is mildly enlarged, left ventricle is normal size, mild concentric left ventricular hypertrophy, estimated ejection fraction 50% with no regional wall motion abnormality, grade 1 diastolic dysfunction seen with tissue Doppler evidence of raise left atrial pressure. Right Ventricle Right atrium and right ventricle mildly enlarged with normal contractility, pacemaker leads in the right atrium and right ventricle. Aortic Valve Aortic valve is thickened and calcified, mean gradient across aortic valve is 12 mmHg, represents mild aortic stenosis, there is mild aortic insufficiency. Mitral Valve Mitral valve has dense mitral annular calcification, leaflets are minimally thickened, there is no significant mitral stenosis, there is mild mitral regurgitation. Tricuspid Valve Tricuspid valve is grossly normal, there is mild tricuspid regurgitation, tricuspid regurgitation jet velocity is inadequate for calculation of the right ventricular systolic pressure. Pulmonic Valve Pulmonic valve is poorly visualized. Great Vessels Aortic root is normal size. Inferior vena cava is poorly visualized. Pericardium No significant pericardial effusion noted. Conclusion 1. Technically difficult study because of the patient factors and poor acoustic windows. Biatrial enlargement, normal left ventricular size, mild concentric left ventricular hypertrophy, estimated ejection fraction 50% with no regional wall motion abnormality, grade 1 diastolic dysfunction seen with tissue Doppler evidence of raise left atrial pressure. 2. Mildly enlarged right ventricle with normal contractility. 3. Thickened and calcified aortic valve with mild aortic stenosis, there is mild aortic insufficiency. 4. Mild mitral and tricuspid regurgitation. 5. No significant pericardial effusion. 6. Inferior vena cava is poorly visualized. Electronically signed by : Quique Barlow MD 09/27/2021 13:15:45
--- NOTE | 2021-09-27 06:02 | NM_ITS ---
APPROVED REPORT Exam: Nuclear Stress Test Indication: Chest pain, SOB, HTN, DM, Former tobacco use, CAD, CABG Patient Location: Outpatient Stress Tech: Aliza Hammond [place] Tech:Tonia Hunter, ARRT, RT (R)(N) Ht: 6 ft 0 in Wt: 215 lbs HR: 60 bpm BP: 198/76 mmHg BSA: 2.20 m2 TID: 1.17 History: Chest pain, SOB, HTN, DM, Former tobacco use, CAD, CABG Procedure: Patient received a 0.4 mg of intravenous Lexiscan, resting heart rate 60 bpm, resting blood pressure 198/76 mmHg, with Lexiscan maximum heart rate achived was 71 bpm which is Less than 85 % of the maximum predicted heart rate and blood pressure was 198/76 mmHg. With Lexiscan, patient denied any complaint of chest pain. Electrocardiogram Resting electrocardiogram appears to be in atrial fibrillation, left bundle branch block, with Lexiscan less than 1.[address] segment depression noted from the baseline EKG. The EKG portion of the Lexiscan is nondiagnostic. Cardiac Stress and Resting SPECT Images: Cardiac Stress and Resting SPECT images were obtained using technetium 99m Myoview 32.1 mCi stress and 10.70 mCi at rest. Gated SPECT for analysis of segmental wall motion and calculation of the ejection fraction also done. Cardiac stress and resting SPECT images show a fixed defect involving the apex and inferior wall consistent with area of nontransmural myocardial scarring, computer derived ejection fraction is 16% with marked inferior and apical wall hypokinesis. Left ventricle is dilated with stress and rest, right ventricle is normal size and contractility. Conclusion: 1. The EKG portion of the Lexiscan is nondiagnostic. 2. Scintigraphic evidence of myocardial scarring involving the apex and inferior wall without significant carli-infarct ischemia, compared to ejection fraction 16% with segmental wall motion abnormality described above, right ventricle is normal size and contractility. 3. Abnormal Lexiscan Myoview study suggestive of multivessel coronary artery disease. Electronically signed by : Quique Barlow MD 09/27/2021 18:45:09
--- NOTE | 2021-09-27 08:27 | HMH.ITSHM ---
Current Home Medications as stated by this patient Austen Quiroz or district representative. []TAMSULOSIN RIVAROXABAN METOPROLOL FINASTERIDE MULTIVITAMIN METFORMIN CLOPIDOGREL ATORVASTATIN AMLODIPINE
== END ==
PROVIDERS: PCP Family Medicine; Visit Provider Nurse Practitioner Family
DX: E11.9 Type 2 diabetes mellitus without complications (principal); E78.2 Mixed hyperlipidemia; I10 Essential (primary) hypertension; I25.810 Atherosclerosis of coronary artery bypass graft(s) without angina pectoris; I35.0 Nonrheumatic aortic (valve) stenosis; I48.19 Other persistent atrial fibrillation; I65.23 Occlusion and stenosis of bilateral carotid arteries; R06.00 Dyspnea, unspecified; R07.89 Other chest pain; R09.89 Other specified symptoms and signs involving the circulatory and respiratory systems; Z95.0 Presence of cardiac pacemaker; Z95.1 Presence of aortocoronary bypass graft; Z95.5 Presence of coronary angioplasty implant and graft; Z79.84 Long term (current) use of oral hypoglycemic drugs
CPT/HCPCS: 78452; 93017; 93306; A9502; J2785

== ENCOUNTER → 2022-05-09 11:00 | Outpatient (CLI) | payer MEDICARE, SELFPAY ==
[2022-05-09 18:43] LABS: Alanine Aminotransferase 21 U/L (12-78); Albumin Level 4.3 g/dl (3.5-5.0); Alkaline Phosphatase 76 U/L (38-126); Aspartate Amino Transferase 29 U/L (17-59); Bilirubin,Direct 0.3 mg/dl (0.0-0.4); Bilirubin,Indirect 0.5 mg/dL (0.0-0.9); Bilirubin,Total 0.8 mg/dl (0.2-1.3); Bilirubin,Unconjugated 0.5 mg/dL (0.0-1.1); Chol/HDL Ratio 4.2 (1-3.5); Cholesterol 97 mg/dl (140-200); HDL Cholesterol 23 mg/dl (40-60); Magnesium 1.5 mg/dl (1.6-2.3); Total Protein,Serum 6.7 g/dl (6.3-8.2); Triglycerides 300 mg/dl (30-150); VLDL Cholesterol 60 mg/dL (0-40)
[2022-05-09 18:44] LABS: Alanine Aminotransferase 21 U/L (12-78); Albumin Level 4.3 g/dl (3.5-5.0); Albumin/Globulin Ratio 1.8 (1.1-1.8); Alkaline Phosphatase 72 U/L (38-126); Anion Gap 13.8 mEq/L (5-15); Aspartate Amino Transferase 29 U/L (17-59); Bilirubin,Total 0.8 mg/dl (0.2-1.3); Blood Urea Nitrogen 18 mg/dl (9-20); Calcium 8.8 mg/dl (8.4-10.2); Carbon Dioxide 24 mmol/L (22.0-30.0); Chloride 104 mmol/L (98-107); Estimated Glomerular Filt Rate 65 ml/min (>60); GFR (African American) 78 ML/MIN (>60); Globulin 2.4 g/dL (1.3-3.2); Glucose 258 mg/dl (74-100); Potassium 4.8 mmoL/L (3.5-5.1); Sodium 137 mmol/L (136-145); Total Protein,Serum 6.7 g/dl (6.3-8.2)
[2022-05-09 18:54] LABS: Basophils # 0.1 K/mm3 (0-0.2); Basophils % 0.9 % (0.1-2.0); Eosinophils # 0.3 K/mm3 (0.0-0.4); Eosinophils % 4.4 % (0.1-12.0); Hematocrit 32.7 % (42.0-52.0); Hemoglobin 11.5 g/dL (14.1-18.0); Lymphocytes # 1.6 K/mm3 (0.7-4.5); Mean Corpuscular Hemoglobin 31.4 pg (27.0-31.2); Mean Corpuscular Volume 89.6 fl (80-94); Mean Platelet Volume 9.4 fl (7.4-10.4); Monocytes # 0.3 K/mm3 (0.1-1.0); Monocytes % 5.3 % (1.7-9.3); Neutrophils # 4.3 K/mm3 (1.8-7.8); Neutrophils % 65.6 % (37.0-80.0); Platelet Count 251 K/mm3 (142-424); Red Blood Count 3.66 M/mm3 (4.60-6.20); Red Cell Distribution Width 14.5 % (11.5-17.5); White Blood Count 6.5 K/mm3 (4.8-10.8)
[2022-05-09 18:55] LABS: Direct LDL Cholesterol 45.03 mg/dL (100-129)
[2022-05-09 19:01] LABS: Free T4 (Free Thyroxine) 0.96 ng/dl (0.78-2.19)
[2022-05-09 19:14] LABS: Thyroid Stimulating Hormone 1.52 uIU/mL (0.465-4.68)
[2022-05-09 19:15] LABS: Prostate Specific Ag Screen 4.7 ng/ml (0.0-4.0)
== END ==
PROVIDERS: Family Medicine; PCP Emergency Medicine; Visit Provider Nurse Practitioner
DX: E11.9 Type 2 diabetes mellitus without complications (principal); Z12.5 Encounter for screening for malignant neoplasm of prostate; I10 Essential (primary) hypertension; E78.2 Mixed hyperlipidemia; I25.708 Atherosclerosis of coronary artery bypass graft(s), unspecified, with other forms of angina pectoris; I35.0 Nonrheumatic aortic (valve) stenosis; I48.19 Other persistent atrial fibrillation; I65.23 Occlusion and stenosis of bilateral carotid arteries; Z95.0 Presence of cardiac pacemaker; Z95.1 Presence of aortocoronary bypass graft; Z95.5 Presence of coronary angioplasty implant and graft; Z79.84 Long term (current) use of oral hypoglycemic drugs
CPT/HCPCS: 80053; 80061; 80076; 83036; 83735; 84439; 84443; 85025; G0103

== ENCOUNTER → 2022-11-10 23:36 | Outpatient (CLI) | payer MEDICARE, SELFPAY ==
[2022-11-10 18:37] LABS: Basophils # 0.1 K/mm3 (0-0.2); Basophils % 0.9 % (0.1-2.0); Eosinophils # 0.2 K/mm3 (0.0-0.4); Eosinophils % 3.6 % (0.1-12.0); Hematocrit 31.5 % (42.0-52.0); Hemoglobin 10.9 g/dL (14.1-18.0); Lymphocytes # 1.4 K/mm3 (0.7-4.5); Mean Corpuscular HGB Conc 34.5 g/dL (31.8-35.4); Mean Corpuscular Hemoglobin 29.7 pg (27.0-31.2); Monocytes # 0.3 K/mm3 (0.1-1.0); Neutrophils # 3.7 K/mm3 (1.8-7.8); Neutrophils % 65.5 % (37.0-80.0); Platelet Count 227 K/mm3 (142-424); Red Blood Count 3.66 M/mm3 (4.60-6.20); White Blood Count 5.6 K/mm3 (4.8-10.8)
[2022-11-10 18:38] LABS: Anion Gap 14.3 mEq/L (5-15); Blood Urea Nitrogen 19 mg/dl (9-20); Carbon Dioxide 24 mmol/L (22.0-30.0); Chloride 109 mmol/L (98-107); Estimated Glomerular Filt Rate 59 ml/min (>60); Potassium 4.3 mmoL/L (3.5-5.1); Sodium 143 mmol/L (136-145)
[2022-11-10 18:39] LABS: Alanine Aminotransferase 19 U/L (12-78); Albumin Level 4.5 g/dl (3.5-5.0); Albumin/Globulin Ratio 1.7 (1.1-1.8); Alkaline Phosphatase 91 U/L (38-126); Aspartate Amino Transferase 28 U/L (17-59); Bilirubin,Total 0.4 mg/dl (0.2-1.3); Calcium 9.4 mg/dl (8.4-10.2); GFR (African American) 71 ML/MIN (>60); Globulin 2.6 g/dL (1.3-3.2); Glucose 90 mg/dl (74-100); Total Protein,Serum 7.1 g/dl (6.3-8.2)
[2022-11-10 18:44] LABS: C-Reactive Protein 4.6 mg/L (0-4)
[2022-11-10 18:59] LABS: Hemoglobin A1C 7.1 % (4.0-6.0)
[2022-11-10 19:06] LABS: Erythrocyte Sedimentation Rate 68 mm/hr (0-20)
== END ==
PROVIDERS: PCP Family Medicine; Visit Provider Family Medicine
DX: E11.9 Type 2 diabetes mellitus without complications; R01.1 Cardiac murmur, unspecified; I25.708 Atherosclerosis of coronary artery bypass graft(s), unspecified, with other forms of angina pectoris; M79.671 Pain in right foot; M79.672 Pain in left foot; Z79.84 Long term (current) use of oral hypoglycemic drugs
CPT/HCPCS: 80053; 83036; 85025; 85651; 86140

== ENCOUNTER → 2022-11-15 12:29 | Outpatient (CLI) | payer MEDICARE, SELFPAY ==
--- NOTE | 2022-11-15 12:32 | CA_ITS ---
FINAL REPORT CLINICAL HISTORY: CARMENCITA, CAD-CABG & coronary stents. FINDINGS: An ultrasound of the carotid arteries was performed. Duplex Doppler evaluation with spectral analysis was performed. The peak systolic velocity of the right common carotid artery is 96 cm/s. The peak systolic velocity of the right internal carotid artery is 106 cm/s and end diastolic velocity is 27 cm/s. A moderate amount of plaque is present. The right external carotid artery is patent. The right vertebral artery is patent with antegrade flow. ICA/CCA ratio: 1.14 The peak systolic velocity of the left common carotid artery is 122 cm/s. The peak systolic velocity of the left internal carotid artery is 164 cm/s and end diastolic velocity 30 cm/s. A moderate amount of plaque is present. The left external carotid artery is patent. The left vertebral artery is patent with antegrade flow. ICA/CCA ratio: 1.53 Bilateral patent vertebral arteries with antegrade flow. IMPRESSION: Last than 50% bilateral carotid stenosis based on velocities. Reviewed, Interpreted and Dictated by Jay Wu III, MD Transcribed by Yvon Adrian Authenticated and [facility]
--- NOTE | 2022-11-15 12:32 | CA_ITS ---
FINAL REPORT CLINICAL HISTORY: edema FINDINGS: Color Doppler, duplex Doppler and compression sonography of the bilateral lower extremities was performed. There is no evidence of deep venous thrombosis from the level of the groin to the calf. The deep veins are patent and compressible. IMPRESSION: No evidence of deep venous thrombosis bilateral lower extremities. Reviewed, Interpreted and Dictated by Jay Wu III, MD Transcribed by Leta Del Angel Authenticated and [facility]
--- NOTE | 2022-11-15 12:32 | US_ITS ---
FINAL REPORT CLINICAL HISTORY: edema, CAD-CABG/coronary stents. Rt great toe wound. FINDINGS: ANKLE/BRACHIAL INDICES FINDINGS: Pressure indices are as follows: RIGHT LOWER EXTREMITY: Ankle brachial pressure index: 0.62 Comments: Moderate LEFT LOWER EXTREMITY: Ankle brachial pressure index: 0.71 Comments: Mild IMPRESSION: Moderate right and mild left peripheral vascular disease. Reviewed, Interpreted and Dictated by Jay Wu III, MD Transcribed by Yvon Adrian Authenticated and [facility]
== END ==
PROVIDERS: PCP Family Medicine; Visit Provider Internal Medicine
DX: E78.5 Hyperlipidemia, unspecified (principal); I10 Essential (primary) hypertension; I25.10 Atherosclerotic heart disease of native coronary artery without angina pectoris; I35.0 Nonrheumatic aortic (valve) stenosis; I48.91 Unspecified atrial fibrillation; I73.9 Peripheral vascular disease, unspecified; Z95.0 Presence of cardiac pacemaker; Z95.1 Presence of aortocoronary bypass graft; Z95.5 Presence of coronary angioplasty implant and graft; R60.0 Localized edema; I65.23 Occlusion and stenosis of bilateral carotid arteries
CPT/HCPCS: 93880; 93923; 93970

== ENCOUNTER → 2022-12-01 15:31 | Outpatient (CLI) | payer MEDICARE, SELFPAY ==
--- NOTE | 2022-12-01 15:35 | XR_ITS ---
FINAL REPORT CLINICAL HISTORY: bilateral foot pain COMPARISON: None FINDINGS: LEFT FOOT Three views of the left foot demonstrate no acute fracture or dislocation. There is a small plantar spur. There are mild vascular calcifications probably due to underlying diabetes. There is mild narrowing of the 1st MTP and 1st IP joints. The soft tissues are unremarkable. IMPRESSION: Degenerative changes without acute bony abnormality. Reviewed, Interpreted and Dictated by Richmond Chao MD Transcribed by Debra Parr Authenticated and [facility]
--- NOTE | 2022-12-01 15:35 | XR_ITS ---
FINAL REPORT CLINICAL HISTORY: bilateral foot pain, ulcer rt great toe COMPARISON: None FINDINGS: RIGHT FOOT 3 views of the right foot were obtained. There is no acute fracture or dislocation. There is a moderate plantar spur. Vascular calcifications are noted. There is narrowing of the 1st metatarsal phalangeal joint and 1st interphalangeal joint consistent with osteoarthritis. Soft tissues are unremarkable. IMPRESSION: Degenerative changes without acute bony abnormality. Reviewed, Interpreted and Dictated by Richmond Chao MD Transcribed by Debra Parr Authenticated and . [facility]
[2022-12-01 16:30] LABS: Basophils # 0.1 K/mm3 (0-0.2); Basophils % 1.2 % (0.1-2.0); Eosinophils # 0.9 K/mm3 (0.0-0.4); Eosinophils % 14.3 % (0.1-12.0); Hematocrit 34.6 % (42.0-52.0); Hemoglobin 11.9 g/dL (14.1-18.0); Lymphocytes # 1.7 K/mm3 (0.7-4.5); Lymphocytes % 27.2 % (10-50); Mean Corpuscular HGB Conc 34.4 g/dL (31.8-35.4); Mean Corpuscular Volume 87.3 fl (80-94); Mean Platelet Volume 8.8 fl (7.4-10.4); Monocytes # 0.4 K/mm3 (0.1-1.0); Neutrophils # 3.2 K/mm3 (1.8-7.8); Neutrophils % 51.4 % (37.0-80.0); Platelet Count 179 K/mm3 (142-424); Red Blood Count 3.96 M/mm3 (4.60-6.20); Red Cell Distribution Width 13.9 % (11.5-17.5); White Blood Count 6.3 K/mm3 (4.8-10.8)
[2022-12-01 17:08] LABS: Alanine Aminotransferase 23 U/L (12-78); Albumin/Globulin Ratio 1.5 (1.1-1.8); Alkaline Phosphatase 79 U/L (38-126); Anion Gap 20.2 mEq/L (5-15); Aspartate Amino Transferase 31 U/L (17-59); Bilirubin,Total 0.4 mg/dl (0.2-1.3); Blood Urea Nitrogen 17 mg/dl (9-20); Calcium 9.1 mg/dl (8.4-10.2); Carbon Dioxide 21 mmol/L (22.0-30.0); Chloride 106 mmol/L (98-107); Estimated Glomerular Filt Rate 72 ml/min (>60); GFR (African American) 87 ML/MIN (>60); Globulin 2.7 g/dL (1.3-3.2); Glucose 147 mg/dl (74-100); Potassium 4.2 mmoL/L (3.5-5.1); Sodium 143 mmol/L (136-145); Total Protein,Serum 6.7 g/dl (6.3-8.2)
[2022-12-01 17:13] LABS: Erythrocyte Sedimentation Rate 21 mm/hr (0-20)
[2022-12-01 17:21] LABS: C-Reactive Protein 0.7 mg/L (0-4)
== END ==
LOC: LAB 15:32
PROVIDERS: PCP Family Medicine; Visit Provider Nurse Practitioner Family
DX: R60.9 Edema, unspecified; M79.672 Pain in left foot; M79.671 Pain in right foot
CPT/HCPCS: 36415; 73630; 80053; 85025; 85651; 86140

== ENCOUNTER 2022-12-08 07:49 | Day surgery (SDC) | payer MEDICARE, SELFPAY ==
[2022-12-08] VITALS (47 sets, daily range): BP systolic 89–211; BP diastolic 41–88; PULSE 60–64; RESP 16–18; TEMP 36.9; O2SAT 90–100; BMI 28.6
--- NOTE | 2022-12-08 | IR_ITS ---
APPROVED REPORT Patient Location: Outpatient PROCEDURES Catheter placed in the abdominal aorta Abdominal aortography Bilateral iliofemoral runoff Catheter placement in the right popliteal artery Right popliteal artery antegrade selective angiogram Intravascular lithotripsy to the right popliteal artery and right superficial femoral artery Drug-coated balloon angioplasty to the right popliteal artery and right superficial femoral artery Right common iliac artery selective angiogram INDICATION Karson claudication class V, Poorly healing lower extremity ulcer involving the right lower extremity right foot, Occlusion of the right superficial and right popliteal artery, Peripheral artery disease, Informed consent was obtained prior to the procedure. COMPLICATIONS None Estimated Blood Loss: Less than 10 mls TECHNIQUE 1% lidocaine used to anesthetize the left femoral groin. The left femoral artery was accessed via the Seldinger technique. 5 Andorran sheath was placed in the left femoral artery and a pigtail catheter was advanced to the abdominal aorta where abdominal aortography and bilateral iliofemoral runoff was performed. Following this a rim catheter was used to cannulate the right common iliac artery and a long advantage wire was advanced under fluoroscopic guidance into the right SFA. The 5 Andorran sheath was exchanged for a long Terumo 6 Andorran sheath. Therapeutic heparin was administered giving a therapeutic ACT and the advantage wire was used to push through the occlusion of the right SFA and popliteal artery. A trailblazer catheter was then advanced over the wire distally into the popliteal artery and the wire was removed and antegrade angiography demonstrated catheter placement in the true lumen. Following this a 300 cm Choice PT extra-support wire was placed distally and a 6 mm x 60 mm shockwave lithotripsy balloon was deployed at 5, 6, 8, 10 areli up and down the right SFA and right popliteal artery. This reduce the calcific disease therefore a 6 mm x 250 mm drug-coated balloon was deployed at 10 areli for 3 minutes further reducing the stenosis. An additional 7 mm x 40 mm balloon was deployed at 12 areli in the proximal SFA and mid SFA to further post dilate calcific disease. Excellent angiographic results were obtained. The catheter was then pulled back to the right common iliac artery where antegrade angiography was performed. At the end of the procedure the long 6 Andorran sheath was exchanged for a short 6 Andorran sheath and patient was transferred to the postop holding area in stable condition ANGIOGRAPHIC RESULTS Distal abdominal aorta is patent mildly calcific. The bilateral common iliac arteries are patent but have proximal 30% calcific disease. The bilateral internal iliac arteries are patent. Bilateral external iliac arteries are patent. Left common femoral artery has 40 and 50% eccentric stenoses while the right common femoral artery has a distal 60% calcified disease. Bilateral profunda femoris arteries are patent Right superficial femoral artery is proximally occluded and then reconstitutes in the abductor canal. There is an additional greater than 90% stenosis with an additional 70% stenosis. The mid popliteal artery is occluded and a pregeniculate collateral then reconstitutes at the PT trunk. There is proximal patency of the anterior tibialis artery and then it is occluded. The peroneal artery and the posterior tibialis artery are patent into the right foot Left superficial femoral artery has proximal diffuse 60% calcified stenosis with a mid vessel 90% calcified stenosis with the left proximal popliteal artery having proximal calcified 90% stenoses and then occluded proximally. It then reconstitutes at the pregeniculate level in the popliteal
[2022-12-08 08:34] LABS: Basophils # 0.1 K/mm3 (0-0.2); Eosinophils # 0.6 K/mm3 (0.0-0.4); Eosinophils % 11.2 % (0.1-12.0); Hematocrit 36.8 % (42.0-52.0); Hemoglobin 12.4 g/dL (14.1-18.0); Lymphocytes # 1.3 K/mm3 (0.7-4.5); Lymphocytes % 23.5 % (10-50); Mean Corpuscular HGB Conc 33.7 g/dL (31.8-35.4); Mean Corpuscular Hemoglobin 29.5 pg (27.0-31.2); Mean Corpuscular Volume 87.5 fl (80-94); Mean Platelet Volume 8.3 fl (7.4-10.4); Monocytes # 0.3 K/mm3 (0.1-1.0); Neutrophils # 3.3 K/mm3 (1.8-7.8); Neutrophils % 58.4 % (37.0-80.0); Platelet Count 210 K/mm3 (142-424); Red Blood Count 4.21 M/mm3 (4.60-6.20); Red Cell Distribution Width 14.2 % (11.5-17.5); White Blood Count 5.7 K/mm3 (4.8-10.8)
[2022-12-08 08:45] LABS: Anion Gap 17.4 mEq/L (5-15); Blood Urea Nitrogen 12 mg/dl (9-20); Calcium 9.2 mg/dl (8.4-10.2); Carbon Dioxide 24 mmol/L (22.0-30.0); Chloride 105 mmol/L (98-107); Creatinine Clearance Estimated 82 mL/min (50-200); Estimated Glomerular Filt Rate 82 ml/min (>60); GFR (African American) 99 ML/MIN (>60); Glucose 169 mg/dl (74-100); Potassium 4.4 mmoL/L (3.5-5.1); Sodium 142 mmol/L (136-145)
[2022-12-08 13:32] LABS: CATHL Activated Clotting Time 374 SEC (74-125)
== END 2022-12-08 19:40 | disposition home or self-care (01) ==
LOC: CATHLAB 10:51 → 2ND 14:13
PROVIDERS: PCP Family Medicine; Visit Provider Internal Medicine
DX: I70.211 Atherosclerosis of native arteries of extremities with intermittent claudication, right leg (principal); I70.25 Atherosclerosis of native arteries of other extremities with ulceration; L98.499 Non-pressure chronic ulcer of skin of other sites with unspecified severity; I70.92 Chronic total occlusion of artery of the extremities; E11.9 Type 2 diabetes mellitus without complications; I48.91 Unspecified atrial fibrillation; I10 Essential (primary) hypertension; Z95.1 Presence of aortocoronary bypass graft; I65.23 Occlusion and stenosis of bilateral carotid arteries; Z95.0 Presence of cardiac pacemaker; I35.0 Nonrheumatic aortic (valve) stenosis; I25.708 Atherosclerosis of coronary artery bypass graft(s), unspecified, with other forms of angina pectoris; Z79.899 Other long term (current) drug therapy
CPT/HCPCS: 80048; 85025; 85347; 99152; 99153; C1725; C1766; C1769; C1894; C9764; J1644; J2720; Q9966

== ENCOUNTER → 2022-12-15 13:09 | Outpatient (CLI) | payer MEDICARE, SELFPAY ==
[2022-12-15 14:12] LABS: Chloride 104 mmol/L (98-107); Potassium 4.8 mmoL/L (3.5-5.1); Sodium 139 mmol/L (136-145)
[2022-12-15 14:15] LABS: Anion Gap 15.8 mEq/L (5-15); Blood Urea Nitrogen 17 mg/dl (9-20); Calcium 9.8 mg/dl (8.4-10.2); Carbon Dioxide 24 mmol/L (22.0-30.0); Estimated Glomerular Filt Rate 72 ml/min (>60); GFR (African American) 87 ML/MIN (>60); Glucose 169 mg/dl (74-100)
== END ==
PROVIDERS: Nurse Practitioner; PCP Family Medicine; Visit Provider Internal Medicine
DX: E78.2 Mixed hyperlipidemia (principal); I10 Essential (primary) hypertension; I25.708 Atherosclerosis of coronary artery bypass graft(s), unspecified, with other forms of angina pectoris; I35.0 Nonrheumatic aortic (valve) stenosis; I48.19 Other persistent atrial fibrillation; I65.23 Occlusion and stenosis of bilateral carotid arteries; Z95.0 Presence of cardiac pacemaker; Z95.1 Presence of aortocoronary bypass graft; Z95.5 Presence of coronary angioplasty implant and graft
CPT/HCPCS: 36415; 80048

== ENCOUNTER 2022-12-22 10:24 | Day surgery (SDC) | payer MEDICARE, SELFPAY ==
[2022-12-22] VITALS (32 sets, daily range): BP systolic 88–238; BP diastolic 42–92; PULSE 58–77; RESP 16–18; TEMP 36.3–36.6; O2SAT 90–100; BMI 28.7
--- NOTE | 2022-12-22 08:25 | IR_ITS ---
APPROVED REPORT Patient Location: Outpatient Electronics Specialist: GISELE Miller RT (R) PROCEDURES Intravascular lithotripsy to the left popliteal artery Catheter placed in left popliteal artery Left popliteal artery selective angiogram Intravascular therapy to the left superficial femoral artery Drug-coated balloon angioplasty to the left popliteal artery and left superficial femoral artery Drug-coated balloon angioplasty to the left common femoral artery Bare-metal self-expanding stent deployment to the left popliteal artery INDICATION Karson claudication class III-IV, Peripheral artery disease, Calcification and atherosclerotic luminal occlusive disease throughout the left common femoral left superficial femoral artery and left popliteal artery Informed consent was obtained prior to the procedure. COMPLICATIONS None Estimated Blood Loss: Less than 10 mls TECHNIQUE 1% lidocaine used anesthetize right groin the right femoral nerves exit the center technique and a 6 Moroccan sheath was placed in the right common femoral artery. A 5 Moroccan rim catheter was advanced distally to the abdominal aorta and used to cannulate the left common iliac artery. An advantage wire was placed under fluoroscopic guidance into the left superficial femoral artery. Therapeutic heparin was administered giving a therapeutic ACT and the short 6 Moroccan sheath was exchanged for a long 6 Moroccan destination sheath. Under fluoroscopic guidance the wire was pushed through the chronic occlusive disease and placed distally. A trailblazer catheter was then advanced over the wire and placed into the left popliteal artery where left popliteal artery selective angiography was performed. Following this a 5 mm x 60 mm lithotripsy balloon was then deployed up and down the superficial femoral artery with a full 300 pulsations up to 10 areli. Following this a 5 mm x 100 mm balloon was deployed in the left popliteal artery and left superficial femoral artery opening the calcification. A 6 mm x 250 mm drug-coated balloon was placed into the left popliteal artery extending back to the left superficial femoral artery and deployed at 7 areli for 3 minutes. An additional 6 mm x 200 mm drug-coated balloon was then placed into the left common femoral artery extending into the left superficial femoral artery and deployed at 10 areli for 3 minutes. Following this angiography demonstrated dense calcification and a small calcification and dissection to the left popliteal artery therefore a 6 mm x 100 mm self-expanding stent was deployed into the left popliteal artery. An additional 6 mm x 100 mm self-expanding stent was placed proximal to this overlapping the distal stent as well as a proximal chronic stent. This was deployed. Following this a 6 mm x 100 mm balloon was deployed at 12 areli into the left popliteal artery and left superficial femoral artery to post dilate and expand the stent. At the end of the procedure the apparatus was removed the long destination sheath was exchanged for a short 6 Moroccan sheath and the patient was transferred to postop putting a stable addition for sheath removal ANGIOGRAPHIC RESULTS Left common femoral artery is calcified with 50% stenosis Left superficial femoral artery subtotally occluded throughout its entire course as is the left popliteal artery. At the end of the procedure that the vessel was widely patent with inline flow into the anterior tibialis artery IMPRESSION Successful angioplasty/intravascular lithotripsy/drug-coated balloon angioplasty/self-expanding bare-metal stent deployment to the left popliteal artery Successful intravascular lithotripsy followed by drug-coated balloon angioplasty to the left superficial femoral artery Successful drug-coated balloon ang
[2022-12-22 11:33] LABS: Basophils # 0.1 K/mm3 (0-0.2); Basophils % 0.9 % (0.1-2.0); Eosinophils # 0.3 K/mm3 (0.0-0.4); Eosinophils % 5.2 % (0.1-12.0); Hematocrit 38.5 % (42.0-52.0); Hemoglobin 12.4 g/dL (14.1-18.0); Lymphocytes # 1.7 K/mm3 (0.7-4.5); Lymphocytes % 29.7 % (10-50); Mean Corpuscular HGB Conc 32.2 g/dL (31.8-35.4); Mean Corpuscular Hemoglobin 28.8 pg (27.0-31.2); Mean Corpuscular Volume 89.6 fl (80-94); Mean Platelet Volume 8.3 fl (7.4-10.4); Monocytes # 0.5 K/mm3 (0.1-1.0); Monocytes % 8.3 % (1.7-9.3); Neutrophils # 3.2 K/mm3 (1.8-7.8); Neutrophils % 55.8 % (37.0-80.0); Platelet Count 246 K/mm3 (142-424); Red Cell Distribution Width 14.6 % (11.5-17.5); White Blood Count 5.8 K/mm3 (4.8-10.8)
[2022-12-22 11:40] LABS: Chloride 106 mmol/L (98-107); Potassium 4.7 mmoL/L (3.5-5.1); Sodium 142 mmol/L (136-145)
[2022-12-22 11:43] LABS: Blood Urea Nitrogen 15 mg/dl (9-20); Creatinine Clearance Estimated 83 mL/min (50-200); Estimated Glomerular Filt Rate 82 ml/min (>60); GFR (African American) 99 ML/MIN (>60)
[2022-12-22 11:44] LABS: Anion Gap 17.7 mEq/L (5-15); Calcium 10.2 mg/dl (8.4-10.2); Carbon Dioxide 23 mmol/L (22.0-30.0); Glucose 171 mg/dl (74-100)
[2022-12-22 13:59] LABS: CATHL Activated Clotting Time 280 SEC (74-125)
--- NOTE | 2022-12-22 15:52 | P.CONPHA_ITS ---
PHA Restrike Hammer Operator Discharge Med Tilt Tray Driver: Austen Quiroz has received discharge medication counseling on the following medications: ASPIRIN PLAVIX AMLODIPINE-OLMESARTAN METOPROLOL ATORVASTATIN PATIENT IS ALREADY TAKING ALL NECESSART MEDICATIONS. SPOKE TO PATIENT'S . NO QUESTIONS OR CONCERNS AT THIS TIME. -CECY RAGSDALE, MELANIED
--- NOTE | 2022-12-22 17:59 | PC.NURSE ---
. called about pt's increasing bp and orders taken.
--- NOTE | 2022-12-22 21:05 | PC.NURSE ---
Patient sat up in bed at 8:00 at 15 degrees. Tolerated it good. Patent increased by 15 degrees q15 min. Dressing remained clean dry and intact. no bleeding noted. Pateint walked in room. Dressing remained intact with no bleeding noted. Patient IV was removed and Last vitals were taken. Patient was given discharge instructions, and packet. Family at bedside heard discharge instructions as well. Pateint left with family via family car and left unit by wheelchair with belonging and discharge packet.
== END 2022-12-22 21:15 | disposition home or self-care (01) ==
LOC: CATHLAB 13:59 → 2ND 15:14
PROVIDERS: PCP Family Medicine; Visit Provider Internal Medicine
DX: E78.5 Hyperlipidemia, unspecified (principal); I10 Essential (primary) hypertension; I25.10 Atherosclerotic heart disease of native coronary artery without angina pectoris; I35.0 Nonrheumatic aortic (valve) stenosis; I48.91 Unspecified atrial fibrillation; I65.29 Occlusion and stenosis of unspecified carotid artery; I70.212 Atherosclerosis of native arteries of extremities with intermittent claudication, left leg; R01.1 Cardiac murmur, unspecified; R60.9 Edema, unspecified; Z95.0 Presence of cardiac pacemaker; Z95.1 Presence of aortocoronary bypass graft; Z95.5 Presence of coronary angioplasty implant and graft
CPT/HCPCS: 80048; 85025; 85347; 99152; 99153; C1725; C1766; C1769; C1776; C1876; C1894; C2623; C9764; C9765; J1644; J2405; J2720; Q9967

== ENCOUNTER → 2023-01-02 14:12 | Outpatient (CLI) | payer MEDICARE, SELFPAY ==
--- NOTE | 2023-01-02 14:31 | CA_ITS ---
FINAL REPORT TECHNIQUE: Ultrasound images of the deep venous system were obtained from the left groin to the calf veins. CLINICAL HISTORY: left leg pain/swelling,S/P LEFT LEG STENTING 12/22,PT ON [facility] FINDINGS: The deep venous system is normally compressible. Normal flow is identified. There are enlarged lymph nodes. IMPRESSION: No evidence of left lower extremity DVT. Reviewed, Interpreted and Dictated by Debra Trujillo MD Transcribed by Riana Schwartz Authenticated and [facility]
== END ==
PROVIDERS: PCP Family Medicine; Visit Provider Internal Medicine
DX: R60.0 Localized edema (principal)
CPT/HCPCS: 93971

== ENCOUNTER → 2023-01-12 15:04 | Outpatient (CLI) | payer MEDICARE, SELFPAY ==
[2023-01-12 16:59] LABS: Erythrocyte Sedimentation Rate 57 mm/hr (0-20)
[2023-01-14 09:57] LABS: C-Reactive Protein 1.1 mg/L (0-4)
== END ==
PROVIDERS: PCP Family Medicine; Visit Provider Nurse Practitioner Family
DX: S91.109A Unspecified open wound of unspecified toe(s) without damage to nail, initial encounter (principal)
CPT/HCPCS: 36415; 85651; 86140

== ENCOUNTER 2024-01-26 08:56 | Emergency (ER) | payer MEDICARE, SELFPAY ==
[2024-01-26] VITALS (10 sets, daily range): BP systolic 125–193; BP diastolic 7–123; PULSE 69–78; RESP 18–20; TEMP 36.5; O2SAT 95–100; BMI 23.1
--- NOTE | 2024-01-26 09:02 | ED_ITS ---
Discharge Plan Disposition Patient Disposition: Home, Self-Care Condition: Good Prescriptions Prescriptions: New oxycodone 5 mg tablet 5 mg PO Q6H PRN (Reason: breakthrough pain) 3 Days Qty: 12 0RF methocarbamol 500 mg tablet 500 mg PO Q8H Qty: 90 0RF No Action tamsulosin 0.4 mg capsule 0.4 mg PO DAILY finasteride 5 mg tablet 5 mg PO DAILY glimepiride 1 mg tablet See Rx Instructions .ROUTE .COMPLEX Qty: 90 3RF Dose Instruction: TAKE 1 TABLET BY MOUTH EVERY DAY Rx Instructions: TAKE 1 TABLET BY MOUTH EVERY DAY erythromycin 5 mg/gram (0.5 %) ointment 0.5 inch ophthalmic (eye) TID Qty: 3.5 3RF mupirocin 2 % ointment 1 applic topical BID Qty: 15 0RF isosorbide mononitrate 30 mg tablet extended release 24 hr 30 mg PO DAILY Qty: 90 3RF ropinirole 2 mg tablet 2 mg PO HS Qty: 90 3RF Rx Instructions: administer 1-3 hours before bedtime clopidogrel 75 mg tablet See Rx Instructions .ROUTE .COMPLEX Qty: 90 3RF Dose Instruction: TAKE 1 TABLET EVERY DAY FOR HEART DISEASE Rx Instructions: TAKE 1 TABLET EVERY DAY FOR HEART DISEASE metformin 1,000 mg tablet 1,000 mg PO BID Qty: 180 3RF Rx Instructions: TAKE 1 TABLET TWICE DAILY cholestyramine (with sugar) [Questran] 4 gram powder 4 g PO DAILY Qty: 348.6 2RF Rx Instructions: administer w/meal; avoid other meds within 1hr before or 4-6hr after dose atorvastatin 40 mg tablet See Rx Instructions .ROUTE .COMPLEX Qty: 90 3RF Dose Instruction: TAKE 1 TABLET EVERY DAY Rx Instructions: TAKE 1 TABLET EVERY DAY metoprolol succinate 100 mg tablet extended release 24 hr See Rx Instructions .ROUTE .COMPLEX Qty: 90 3RF Dose Instruction: TAKE 1 TABLET EVERY DAY Rx Instructions: TAKE 1 TABLET EVERY DAY amlodipine-olmesartan 5-20 mg tablet See Rx Instructions .ROUTE .COMPLEX Qty: 180 3RF Dose Instruction: TAKE 1 TABLET TWICE DAILY FOR HIGH BLOOD PRESSURE Rx Instructions: TAKE 1 TABLET TWICE DAILY FOR HIGH BLOOD PRESSURE gabapentin 300 mg capsule 300 mg PO TID Qty: 90 3RF Xarelto 15 mg tablet See Rx Instructions .ROUTE .COMPLEX Qty: 90 3RF Dose Instruction: TAKE 1 TABLET EVERY DAY WITH EVENING MEAL Rx Instructions: TAKE 1 TABLET EVERY DAY WITH EVENING MEAL aspirin 81 mg Tablet,Chewable 81 mg PO DAILY 30 Days Qty: 30 3RF multivitamin 1 EACH tablet 1 each PO HS Referrals Follow up/Referrals: Mireille Arcos APRN [Nurse Practitioner] - See instructions Mandeep Parham MD [Primary Care Provider] - See instructions Activity Restrictions/Add. Instructions Additional Instructions/Restrictions: As we discussed, your CT scans of your thoracic and lumbar spine showed degenerative changes but no acute fracture. I suspect that, given your recent leg amputation and subsequent changes to the way you are walking as a result of that, you likely flared up some chronic changes in your lower back. I have prescribed pain medication and placed a referral to a pain medicine specialist. Please be very careful to take appropriate precautions to avoid falls in light taking multiple medications for pain which can cause dizziness and drowsiness as well as your blood thinners. Please return with any new or worsening symptoms. Clinical Impressions Clinical Impression: Acute low back pain Instructions Patient Instructions: DI for Low Back Pain Print Language Print Language: Greek Discharge ED Provider: Lobo Paz General Adult HPI General Chief complaint: Back Pain/Injury Stated complaint: Pain in back, cannot walk, no accident, Time Seen by Provider: 01/26/24 09:02 History of Present Illness HPI narrative: The patient presents with a chief complaint of weakness in his prosthetic leg, specifically in the ankle, and an inability to put weight on it or stand up. He reports that this issue has been ongoing for three days. He also mentions experiencing back pain, describing it as feeling like needles, which has caused sleep disturbances for the past two nights. The patient also denies any numbness or tingling in his groin area, arms, or pain in his head or neck. He denies issues with losing control of his bladder or bowels. The patient has a history of a recent procedure on his leg due to poor blood flow and an infection in his tongue. He denies any recent illnesses, such as stomach bugs, and reports no history of back problems. He mentions that he was walking on his prosthetic leg two days ago before the onset of weakness. His blood pressure is noted to be 99, and he reports forgetting to take his home medications today. Please note that above description of symptoms, in this electronic medical record under categorization of recalled from ER triage doctor by RN are reflective of an initial nursing assessment, however, is not reflective of my full history and physical exam that was personally taken and clarified. Consequentially, this preceding description of symptoms, which may include the patient's categorized chief complaint in the EMR, do not reflect my personal clinical impression, and the ultimate description of history of present illness and patient stated complaints should be deferred to this section of the note. Unless stated otherwise or congruent with this section of the note, additional signs, symptoms, or incongruence should be interpreted as inaccurate with my clinical impression. Related Data Home Medications ?Medication ?Instructions ?Recorded ?Confirmed multivitamin 1 each PO HS vitamin 09/03/20 05/05/23 finasteride 5 mg tablet 5 mg PO DAILY . 11/07/22 05/05/23 tamsulosin 0.4 mg capsule 0.4 mg PO DAILY . 11/07/22 05/05/23 Previous Rx's ?Medication ?Instructions ?Recorded aspirin 81 mg chewable tablet 81 mg PO DAILY 30 days #30 tabs 12/08/22 mupirocin 2 % topical ointment 1 applic topical BID #15 grams 12/30/22 isosorbide mononitrate 30 mg 30 mg PO DAILY . #90 tabs 04/19/23 tablet,extended release 24 hr ropinirole 2 mg tablet 2 mg PO HS #90 tabs 04/21/23 clopidogrel 75 mg tablet See Rx Instructions .Route 05/01/23 .COMPLEX #90 tabs erythromycin 5 mg/gram (0.5 %) eye 0.5 inch ophthalmic (eye) TID #3.5 05/05/23 ointment grams glimepiride 1 mg tablet See Rx Instructions .Route 05/05/23 .COMPLEX #90 tabs metformin 1,000 mg tablet 1,000 mg PO BID Diabetes #180 tabs 05/08/23 cholestyramine (with sugar) 4 gram 4 g PO DAILY #348.6 grams 05/15/23 oral powder (Questran) atorvastatin 40 mg tablet See Rx Instructions .Route 06/05/23 .COMPLEX #90 tabs metoprolol succinate 100 mg See Rx Instructions .Route 06/05/23 tablet,extended release 24 hr .COMPLEX #90 tabs amlodipine 5 mg-olmesartan 20 mg See Rx Instructions .Route 08/08/23 tablet .COMPLEX #180 tabs gabapentin 300 mg capsule 300 mg PO TID #90 caps 10/23/23 rivaroxaban 15 mg tablet (Xarelto) See Rx Instructions .Route 11/30/23 .COMPLEX #90 tabs methocarbamol 500 mg tablet 500 mg PO Q8H #90 tabs 01/26/24 oxycodone 5 mg tablet 5 mg PO Q6H PRN breakthrough pain 01/26/24 3 days #12 tabs Allergies Allergy/AdvReac Type Severity Reaction Status Date / Time No Known Allergies Allergy Verified 05/05/23 13:58 [facility] Disclaimer: The information contained in this section may have been updated after the patient was seen, as this information can be updated by other users. Medical History Amputated toe of right foot Atrial fibrillation Cardiac pacemaker in situ Chest pain Dyspnea Essential hypertension PVD (peripheral vascular disease) Right great toe amputee Wound of right foot Surgical History H/O angioplasty S/P CABG x 5 Social History Smoking Status: Former smoker tobacco type: cigarettes alcohol intake: current alcohol intake frequency: 3 or more drinks per day substance use type: denies use current occupational status: employed Travel in the last 8 weeks: Inside the [place] household members: spouse housing: house Other Medical History Have you received the Flu Vaccine for this season: No Have you received the Pneumonia Vaccine: Yes ROS Obtained: Yes other As per HPI Physical Exam General General appearance: alert and in no apparent distress Head Head exam: atraumatic and normocephalic Eye Eye exam: Present normal appearance Neck Neck exam: Present normal inspection Chest Chest inspection: Present normal inspection and symmetric chest wall rise Respiratory Respiratory exam: Present normal lung sounds bilaterally; Absent respiratory distress Cardiovascular Cardiovascular exam: Present regular rate and normal rhythm Abdominal Exam Abdominal exam: Present soft Neurological Exam Neurological exam: Present alert and oriented X3 Psychiatric Psychiatric exam: Present normal affect and normal mood Skin Skin exam: Present warm and dry Other Other exam information: 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 Left lower extremity with palpable DP and PT pulses. Capillary refill within normal limits. Sensation intact throughout. Reported weakness with dorsiflexion of left lower extremity that upon serial measurements is 4+ out of 5. Full strength and sensation throughout rest of leg. Medical Decision Making Medical Records Medical records reviewed: Yes I reviewed the patient's medical records. Screening: Per USPSTF and CDC recommendations, given the prevalence of disease in our region, it is our hospital?s policy to screen for HIV and viral Hepatitis for all patients aged 18 and over and those with ongoing risk factors. Trevon Inquiry Pt receiving controlled substance: Yes Trevon was queried for this patient: Yes Risks and benefits of using a controlled substance: were discussed with pt by me Vital Signs: 01/26/24 08:57 01/26/24 09:03 01/26/24 10:36 Temperature 97.7 F Temperature Source Oral Pulse Rate 69 69 Pulse Rate [Radial] 70 Respiratory Rate 18 Blood Pressure 173/86 H 193/89 H Blood Pressure [Right Arm] 173/86 H Blood Pressure Mean [Right Arm] 115 Blood Pressure Source Blood Pressure Source [Right Arm] Automatic Cuff Blood Pressure Position [Right Arm] Sitting 02 Sat by Pulse Oximetry 100 99 99 Oxygen Delivery Method Room Air Room Air Room Air 01/26/24 11:00 01/26/24 11:31 01/26/24 12:00 Temperature Temperature Source Pulse Rate 69 70 69 Pulse Rate [Radial] Respiratory Rate Blood Pressure 181/7 H 163/123 H 193/82 H Blood Pressure [Right Arm] Blood Pressure Mean [Right Arm] Blood Pressure Source Blood Pressure Source [Right Arm] Blood Pressure Position [Right Arm] 02 Sat by Pulse Oximetry 100 98 98 Oxygen Delivery Method Room Air Room Air 01/26/24 12:19 01/26/24 12:30 01/26/24 13:00 Temperature Temperature Source Pulse Rate 70 70 70 Pulse Rate [Radial] Respiratory Rate Blood Pressure 186/82 H 188/88 H 164/83 H Blood Pressure [Right Arm] Blood Pressure Mean [Right Arm] Blood Pressure Source Blood Pressure Source [Right Arm] Blood Pressure Position [Right Arm] 02 Sat by Pulse Oximetry 98 95 99 Oxygen Delivery Method Room Air Room Air Room Air 01/26/24 13:55 Temperature 97.7 F Temperature Source Oral Pulse Rate 78 Pulse Rate [Radial] Respiratory Rate 20 Blood Pressure 125/78 Blood Pressure [Right Arm] Blood Pressure Mean [Right Arm] Blood Pressure Source Automatic Cuff Blood Pressure Source [Right Arm] Blood Pressure Position [Right Arm] 02 Sat by Pulse Oximetry Oxygen Delivery Method Room Air Lab Data Lab Results 01/26/24 09:17: WBC 8.9, RBC 4.14 L, Hgb 12.0 L, Hct 33.8 L, MCV 81.7, MCH 28.9, MCHC 35.4, RDW 15.5, Plt Count 230, MPV 8.1, Neut % (Auto) 81.6 H, Lymph % (Auto) 13.0, [place] % (Auto) 3.9, Eos % (Auto) 1.0, Baso % (Auto) 0.5, Neut # (Auto) 7.3, Lymph # (Auto) 1.2, [place] # (Auto) 0.4, Eos # (Auto) 0.1, Baso # (Auto) 0.0, PT 13.5 H, INR 1.23 H, Sodium 139, Potassium 4.4, Chloride 103, Carbon Dioxide 23, Anion Gap 17.4 H, BUN 21 H, Creatinine 0.90, Estimated Creat Clear 66, Estimated GFR 81, Est GFR ( Amer) 98, Glucose 170 H, Calcium 9.8, Magnesium 1.4 L, Total Bilirubin 0.8, AST 36, ALT 28, Alkaline Phosphatase 73, Total Protein 7.8, Albumin 4.7, Globulin 3.1, Albumin/Globulin Ratio 1.5, Lipase 233, Hepatitis C Antibody Non reactive, HIV 1&2 Antibody Rapid Nonreactive 01/26/24 11:21: Lactate 2.0 01/26/24 12:18: Urine Color Yellow, Urine Appearance Clear, Urine pH 6.0, Ur Specific [place] 1.025, Urine Protein 1+ A, Urine Glucose (UA) Negative, Urine Ketones Negative, Urine Blood Negative, Urine Nitrate Negative, Urine Bilirubin Negative, Urine Urobilinogen 0.2, Ur Leukocyte Esterase Negative, Urine RBC None, Urine WBC Occasional, Ur Squamous Epith Cells Occasional, Urine Bacteria Trace 01/26/24 09:17 01/26/24 09:17 Orders (Tests/Meds): ED MEDICATIONS Discontinued Medications Generic Name Dose Route Start Last Admin Trade Name Freq PRN Reason Stop Dose Admin Amlodipine Besylate 5 mg 01/26/24 10:52 01/26/24 11:02 Amlodipine 5mg Tablet PO 01/26/24 10:53 5 mg ONCE ONE Administration Methocarbamol 1,000 mg 01/26/24 13:24 01/26/24 13:35 Methocarbamol 500mg Tablet PO 01/26/24 13:25 1,000 mg ONCE ONE Administration Oxycodone HCl 5 mg 01/26/24 13:24 01/26/24 13:35 Oxycodone 5mg Immediate Release Tablet PO 01/26/24 13:25 5 mg ONCE ONE Administration Sodium Chloride 10 ml 01/26/24 09:44 Sodium Chloride 0.9% 10ml Flush Syringe IV 02/25/24 09:43 NEEDED PRN Maintain IV Site ORDERS Category Date Time Status CT lumbar spine wo con Stat Cat Scan 01/26/24 11:[address] thoracic spine wo con Stat Cat Scan 01/26/24 11:07 Completed CBC w/Auto Diff [Complete Blood Count Auto Diff] Stat Lab 01/26/24 09:17 Completed CMP [Comprehensive Metabolic Panel] Stat Lab 01/26/24 09:17 Completed HIV (1&2) Antibody Rapid Stat Lab 01/26/24 09:17 Completed Hep C Ab with Reflex to RNA Stat Lab 01/26/24 09:17 Completed Lactic Acid Stat Lab 01/26/24 11:21 Completed Lipase Stat Lab 01/26/24 09:17 Completed MAG [Magnesium] Stat Lab 01/26/24 09:17 Completed PT INR [Prothrombin Time INR] Stat Lab 01/26/24 09:17 Completed Urinalysis and Microscopic Stat Lab 01/26/24 12:18 Completed Urine Culture Stat Micro 01/26/24 09:23 Received Medical Decision Narrative: Patient with history and exam per above presenting for evaluation of reported weakness of left lower extremity Diagnoses considered include lumbar radiculopathy, no clinical evidence of cauda equina syndrome or spinal epidural abscess at this time. Patient had recent ED visit with negative CT abdomen and pelvis. Negative CT head. No clinical features to suggest stroke as etiology of the symptoms. It appears most likely, given pain causing his reported weakness upon further investigation and clarification of his symptoms that, given recent below the knee amputation on contralateral extremity, his gait has been altered and he is bearing more weight on his left lower extremity, likely exacerbating chronic degenerative changes. ED workup and treatment included: ED MEDICATIONS Discontinued Medications Generic Name Dose Route Start Last Admin Trade Name Freq PRN Reason Stop Dose Admin Amlodipine Besylate 5 mg 01/26/24 10:52 01/26/24 11:02 Amlodipine 5mg Tablet PO 01/26/24 10:53 5 mg ONCE ONE Administration Methocarbamol 1,000 mg 01/26/24 13:24 01/26/24 13:35 Methocarbamol 500mg Tablet PO 01/26/24 13:25 1,000 mg ONCE ONE Administration Oxycodone HCl 5 mg 01/26/24 13:24 01/26/24 13:35 Oxycodone 5mg Immediate Release Tablet PO 01/26/24 13:25 5 mg ONCE ONE Administration Sodium Chloride 10 ml 01/26/24 09:44 Sodium Chloride 0.9% 10ml Flush Syringe IV 02/25/24 09:43 NEEDED PRN Maintain IV Site ORDERS Category Date Time Status CT lumbar spine wo con Stat Cat Scan 01/26/24 11:[address] thoracic spine wo con Stat Cat Scan 01/26/24 11:07 Completed CBC w/Auto Diff [Complete Blood Count Auto Diff] Stat Lab 01/26/24 09:17 Completed CMP [Comprehensive Metabolic Panel] Stat Lab 01/26/24 09:17 Completed HIV (1&2) Antibody Rapid Stat Lab 01/26/24 09:17 Completed Hep C Ab with Reflex to RNA Stat Lab 01/26/24 09:17 Received Lactic Acid Stat Lab 01/26/24 11:21 Completed Lipase Stat Lab 01/26/24 09:17 Completed MAG [Magnesium] Stat Lab 01/26/24 09:17 Completed PT INR [Prothrombin Time INR] Stat Lab 01/26/24 09:17 Completed Urinalysis and Microscopic Stat Lab 01/26/24 12:18 Completed Urine Culture Stat Micro 01/26/24 09:23 Received Labs were independently interpreted by me, significant for no acute findings Imaging was independently visualized and interpreted by me, significant for no acute osseous abnormality Please refer to radiology report for full details. My clinical impression at this time is most consistent with exacerbation of degenerative changes in thoracic and lumbar spine precipitating pain limiting range of motion of left lower extremity in light of recent below the knee amputation of contralateral lower extremity. I discussed my clinical impression with patient and answered all questions. At this time, the evidence for any other entities in the differential is insufficient to warrant any further testing or ED observation. This was explained to the patient. The patient was advised that persistent or worsening symptoms require further evaluation. Critical Care Critical Care Time Critical Care Time: No
--- NOTE | 2024-01-26 09:17 | PC.NURSE ---
called in [place], [place] for medical records on pt. they stated pt was seen in there er on 01/25/24 and would fax everything to [phone]
[2024-01-26 09:33] LABS: Albumin Level 4.7 g/dl (3.5-5.0); Basophils % 0.5 % (0.1-2.0); Chloride 103 mmol/L (98-107); Eosinophils # 0.1 K/mm3 (0.0-0.4); Hematocrit 33.8 % (42.0-52.0); Lymphocytes # 1.2 K/mm3 (0.7-4.5); Mean Corpuscular HGB Conc 35.4 g/dL (31.8-35.4); Mean Corpuscular Hemoglobin 28.9 pg (27.0-31.2); Mean Corpuscular Volume 81.7 fl (80-94); Mean Platelet Volume 8.1 fl (7.4-10.4); Monocytes # 0.4 K/mm3 (0.1-1.0); Monocytes % 3.9 % (1.7-9.3); Neutrophils # 7.3 K/mm3 (1.8-7.8); Neutrophils % 81.6 % (37.0-80.0); Platelet Count 230 K/mm3 (142-424); Red Blood Count 4.14 M/mm3 (4.60-6.20); Red Cell Distribution Width 15.5 % (11.5-17.5); Sodium 139 mmol/L (136-145); White Blood Count 8.9 K/mm3 (4.8-10.8)
[2024-01-26 09:34] LABS: Potassium 4.4 mmoL/L (3.5-5.1)
[2024-01-26 09:36] LABS: Alanine Aminotransferase 28 U/L (12-78); Albumin/Globulin Ratio 1.5 (1.1-1.8); Alkaline Phosphatase 73 U/L (38-126); Anion Gap 17.4 mEq/L (5-15); Aspartate Amino Transferase 36 U/L (17-59); Bilirubin,Total 0.8 mg/dl (0.2-1.3); Blood Urea Nitrogen 21 mg/dl (9-20); Carbon Dioxide 23 mmol/L (22.0-30.0); Creatinine Clearance Estimated 66 mL/min (50-200); Estimated Glomerular Filt Rate 81 ml/min (>60); GFR (African American) 98 ML/MIN (>60); Globulin 3.1 g/dL (1.3-3.2); Lipase 233 U/L (23-300); Magnesium 1.4 mg/dl (1.6-2.3); Total Protein,Serum 7.8 g/dl (6.3-8.2)
[2024-01-26 09:37] LABS: Calcium 9.8 mg/dl (8.4-10.2); Glucose 170 mg/dl (74-100)
[2024-01-26 09:39] LABS: INR 1.23 (0.9-1.1); Prothrombin Time 13.5 seconds (10.1-12.5)
--- NOTE | 2024-01-26 09:45 | PC.NURSE ---
MEDICAL RECORDS RECEIVED FROM [facility], GAVE REPORTS TO DAVID FLOYD
[2024-01-26 10:43] LABS: HIV (1&2) Antibody Rapid NONREACTIVE (NONREACTIVE)
--- NOTE | 2024-01-26 10:45 | PC.NURSE ---
ROUNDED ON PT NO NEEDS AT THIS TIME AT BS,CALL LIGHT IN REACH
--- NOTE | 2024-01-26 10:59 | PC.NURSE ---
DR MCCURDY AT BEDSIDE
[2024-01-26] MEDS: AMLODIPINE 5MG TABLET 5 MG PO (11:02)
--- NOTE | 2024-01-26 11:07 | CT_ITS ---
PROCEDURE INFORMATION: Exam: CT Thoracic Spine Without Contrast Exam date and time: 01/26/2024 11:19 AM Age: 79 years old Clinical indication: Pain in thoracic spine; Additional info: Back pain, subjective weakness with dorsiflexion L TECHNIQUE: Imaging protocol: Computed tomography of the thoracic spine without contrast. Radiation optimization: All CT scans at this facility use at least one of these dose optimization techniques: automated exposure control; mA and/or kV adjustment per patient size (includes targeted exams where dose is matched to clinical indication); or iterative reconstruction. COMPARISON: XA CL BOLUS JESÚS UNILAT AORTA 12/22/2022 10:58 AM FINDINGS: Bones/joints: Vertebral body heights and alignment are within normal limits. The bones are somewhat osteopenic. Spondylosis is noted with endplate sclerosis, Schmorl's nodes but no severe canal or foraminal narrowing. Soft tissues: Unremarkable. Vasculature: Patient has undergone stent graft of the origin of the left subclavian artery. Lungs: A calcified granulomas noted in the posterior aspect of the left lower lobe. Calcific lymphadenopathy is noted in the mediastinum and left hilum. IMPRESSION: Osteopenia degenerative change in the thoracic spine. No severe thoracic canal or foraminal narrowing.
--- NOTE | 2024-01-26 11:08 | CT_ITS ---
PROCEDURE INFORMATION: Exam: CT Lumbar Spine Without Contrast Exam date and time: 01/26/2024 11:21 AM Age: 79 years old Clinical indication: Low back pain; Additional info: Back pain, subjective weakness with dorsiflexion L TECHNIQUE: Imaging protocol: Computed tomography of the lumbar spine without contrast. Radiation optimization: All CT scans at this facility use at least one of these dose optimization techniques: automated exposure control; mA and/or kV adjustment per patient size (includes targeted exams where dose is matched to clinical indication); or iterative reconstruction. COMPARISON: CT THORACIC SPINE WO CON 01/26/2024 11:19 AM FINDINGS: Bones/joints: There is bilateral L5 spondylolysis and associated 7.5 mm grade 1 L5-S1 spondylolisthesis. The bones are generally osteopenic. Multilevel lumbar spondylosis is noted with disc osteophyte, endplate sclerosis and facet arthropathy. Vasculature: The abdominal aorta is heavily calcified. Soft tissues: Unremarkable. IMPRESSION: Lumbar spondylosis, L5 spondylolysis and grade 1 L5-S1 spondylolisthesis.
--- NOTE | 2024-01-26 11:14 | PC.NURSE ---
PT TO CT
[2024-01-26 12:23] LABS: Microscopic, Urine URINE MICROSCOPIC (MICROSCOPIC)
[2024-01-26 12:24] LABS: Appearance,Urine CLEAR (Clear); Bilirubin,Urine Negative (Negative); Blood, Urine Negative (Negative); Color,Urine YELLOW (Yellow); Glucose,Urine (UA) Negative (Negative); Ketones,Urine Negative (Negative); Leukocyte Esterase,Urine Negative (Negative); Nitrate,Urine Negative (Negative); Protein,Urine 1+ (Negative); Specific Gravity, Urine 1.025 (1.005-1.030); Urobilinogen,Urine 0.2 EU/dl (0.2)
[2024-01-26 12:32] LABS: Bacteria,Urine Trace /lpf; Squamous Epithelial Cell,Urine Occasional #/hpf (0-5); WBC,Urine Occasional #/hpf (0-3)
[2024-01-26] MEDS: METHOCARBAMOL 500MG TABLET 1000 MG PO (13:35)
[2024-01-26] MEDS: OXYCODONE 5MG IMMEDIATE RELEASE TABLET 5 MG PO (13:35)
[2024-01-27 08:28] LABS: HCV Ab Non Reactive (Non Reactive)
== END 2024-01-26 14:02 | disposition home or self-care (01) ==
PROVIDERS: Emergency Provider Emergency Medicine; PCP Family Medicine
DX: M54.50 Low back pain, unspecified (principal); R53.1 Weakness; R20.2 Paresthesia of skin
CPT/HCPCS: 72128; 72131; 80053; 81001; 83605; 83690; 83735; 85025; 85610; 86803; 87086; 87389; 99284